=== PATIENT | female | born 1995 | race Caucasian/White ===

== ENCOUNTER 2020-05-10 08:00 | Outpatient (CLI) | payer MEDICAID ==
[2020-05-11 11:06] LABS: MUDS CUTOFF CONCENTRATIONS CUTOFF CONC BELOW:
[2020-05-11 11:18] LABS: BILIRUBIN,URINE NEGATIVE (NEGATIVE); GLUCOSE, URINE (UA) NEGATIVE (NEGATIVE); KETONES,URINE (UA) NEGATIVE (NEGATIVE); LEUKOCYTE ESTERASE, URINE NEGATIVE (NEGATIVE); NITRITE,URINE NEGATIVE (NEGATIVE); OCCULT BLOOD,URINE NEGATIVE (NEGATIVE); PH,URINE 6.5 PH (5.0-7.5); PROTEIN,URINE NEGATIVE (NEGATIVE); UROBILINOGEN,URINE 0.2 (NORMAL) E.U./dL (NORMAL)
[2020-05-11 11:26] LABS: AMPHETAMINE SCREEN,URINE NEGATIVE (NEGATIVE); BARBITURATE SCREEN,UR NEGATIVE (NEGATIVE); BENZODIAZEPINES SCREEN, URINE NEGATIVE (NEGATIVE); CLARITY,URINE CLEAR (CLEAR); COCAINE SCREEN URINE NEGATIVE (NEGATIVE); METHADONE SCREEN, URINE NEGATIVE (NEGATIVE); METHAMPHETAMINES SCREEN, URINE NEGATIVE (NEGATIVE); OPIATE SCREEN, URINE NEGATIVE (NEGATIVE); OXYCODONE SCREEN, URINE NEGATIVE (NEGATIVE); PROPOXYPHENE SCREEN, URINE NEGATIVE (NEGATIVE); THC CANNABINOID SCREEN, URINE NEGATIVE (NEGATIVE); TRICYCLIC ANTIDEPRESSANT,URINE NEGATIVE (NEGATIVE)
[2020-05-11 11:30] LABS: BACTERIA,URINE Few /HPF (None Seen); RBC,URINE 0-5 /HPF (0-5); SQUAMOUS EPITHELIAL CELL,UR FEW Squamous (<= Few); WBC,URINE 0-3 /HPF (0-5)
== END 2020-05-10 23:59 | disposition home or self-care (01) ==
LOC: LAB.R 08:00
PROVIDERS: ATTEND Obstetrics & Gynecology
DX: Z32.01 Encounter for pregnancy test, result positive (principal)
CPT/HCPCS: 80306; 81001; 87086

== ENCOUNTER 2020-05-11 16:35 | Outpatient (CLI) | payer MEDICAID ==
--- NOTE | 2020-05-12 07:33 | Ultrasound Report ---
PROCEDURE: OB First Trimester w/TV INDICATIONS: PREG TEST POSITIVE OUTSIDE/PRIOR DATING DATA: Last menstrual period (LMP): 03/01 2020. LMP-based estimated date of delivery (MICHAEL): 12/06/2020. First dating scan (date and location): 05/11/2020. Estimated date of delivery (MICHAEL) from first dating scan: 12/28/2020. TECHNIQUE: Real-time scanning was performed of the fetus and maternal pelvic organs, with image documentation. Endovaginal scanning was also performed to better visualize the fetus and maternal ovaries. COMPARISON: None FINDINGS: Embryo: Single living intrauterine gestation identified. Yolk sac and pole identified. [place]-r ump length measures 0.93 cm corresponding to ultrasound estimated gestational age of 7 weeks 0 days. heart rate measured at 135 bpm. Small 1.5-0 0.9 x 0.9 cm periimplantational bleed noted Measurement variability in dating: +/- 4 weeks by LMP, +/- 7 days by mean sac diameter (use before 6 weeks gestation if crown-rump length not able to be measured), +/- 5 days by crown-rump length (6-12 weeks gestation). Maternal organs: Ovaries are suboptimally visualized. Ovaries are grossly sonographically normal. IMPRESSION: Single living intrauterine gestation with ultrasound estimated gestational age of 7 weeks 0 days jose esponding to ultrasound MICHAEL of 12/28/2020. Reviewed by: Natty Rubio MD, PhD on 05/12/2020 7:32 AM PDT Approved by: Natty Rubio MD, PhD on 05/12/2020 7:32 AM PDT Station ID: [id number]
== END 2020-05-11 16:36 | disposition home or self-care (01) ==
LOC: DI 16:35
PROVIDERS: ATTEND Obstetrics & Gynecology
DX: Z32.01 Encounter for pregnancy test, result positive (principal)

== ENCOUNTER 2020-05-16 13:23 | Outpatient (CLI) | payer MEDICAID ==
[2020-05-16 14:06] LABS: BASOPHILS % (AUTO) 0.1 %; EOSINOPHILS % (AUTO) 0.1 %; HCT - HEMATOCRIT 40.4 % (37.0-47.0); HGB - HEMOGLOBIN 12.9 g/dL (12.0-16.0); LYMPHOCYTES # (AUTO) 2.4 10^3/uL (1.5-3.5); MEAN CORPUSCULAR HEMOGLOBIN 25.5 pg (27.0-31.0); MEAN CORPUSCULAR HGB CONC 31.9 g/dL (32.0-36.0); MEAN PLATELET VOLUME 9.1 fL (7.9-10.8); MONOCYTES # (AUTO) 0.6 10^3/uL (0.0-1.0); NEUTROPHILS # (AUTO) 6.8 10^3/uL (1.5-6.6); NEUTROPHILS % (AUTO) 69.1 %; PLT - PLATELET COUNT 257 10^3/uL (130-450); RED BLOOD COUNT 5.05 10^6/uL (4.20-5.40); RED CELL DISTRIBUTION WIDTH 14.6 % (12.0-15.0); WHITE BLOOD COUNT 9.8 x10^3/uL (4.8-10.8)
[2020-05-16 14:37] LABS: THYROID STIMULATING HORMONE 2.05 uIU/mL (0.34-5.60)
[2020-05-16 19:43] LABS: ESTIMATED AVERAGE GLUCOSE 91 mg/dL (70-100); HEMOGLOBIN A1c% 4.8 % (4.27-6.07)
[2020-05-18 13:01] LABS: HEPATITIS B SURFACE ANTIGEN NON-REACTIVE (NON-REACTIVE)
[2020-05-18 13:16] LABS: HEPATITIS C ANTIBODY NON-REACTIVE (NON-REACTIVE)
[2020-05-18 16:56] LABS: HIV AG/AB 4TH GEN NON-REACTIVE (NON-REACTIVE)
== END 2020-05-16 13:24 | disposition home or self-care (01) ==
LOC: LAB 13:23
PROVIDERS: ATTEND Obstetrics & Gynecology
DX: Z32.01 Encounter for pregnancy test, result positive (principal)
CPT/HCPCS: 36415; 83036; 84443; 85025; 86592; 86762; 86787; 86803; 86850; 86900; 86901; 87340; 87389

== ENCOUNTER 2021-02-18 22:54 | Outpatient (CLI) | payer MEDICAID ==
[2021-02-18] MEDS ORDERED: ACETAMINOPHEN 500 MG TABLET PO ONE (23:00)
[2021-02-18] MEDS ORDERED: LACTATED RINGERS 1,000 ML IV ONE (23:34)
[2021-02-18] MEDS ORDERED: ACETAMINOPHEN 325 MG TABLET PO ONE (23:45)
[2021-02-19 00:11] LABS: BASOPHILS % (AUTO) 0.3 %; EOSINOPHILS % (AUTO) 0.5 %; HCT - HEMATOCRIT 34.6 % (37.0-47.0); HGB - HEMOGLOBIN 11.1 g/dL (12.0-16.0); LYMPHOCYTES # (AUTO) 0.8 10^3/uL (1.5-3.5); LYMPHOCYTES % (AUTO) 13.9 %; MEAN CORPUSCULAR HEMOGLOBIN 24.7 pg (27.0-31.0); MEAN CORPUSCULAR HGB CONC 32.1 g/dL (32.0-36.0); MEAN CORPUSCULAR VOLUME 76.9 fL (81.0-99.0); MEAN PLATELET VOLUME 10.2 fL (7.9-10.8); MONOCYTES # (AUTO) 0.8 10^3/uL (0.0-1.0); MONOCYTES % (AUTO) 13.4 %; NEUTROPHILS # (AUTO) 4.2 10^3/uL (1.5-6.6); NEUTROPHILS % (AUTO) 70.2 %; NRBC ABSOLUTE COUNT (AUTO) 0.02 x10^3/uL; NUCLEATED RED BLOOD CELLS AUTO 0.3 /100WBC; PLT - PLATELET COUNT 259 10^3/uL (130-450); RED CELL DISTRIBUTION WIDTH 16.2 % (12.0-15.0)
[2021-02-19 00:20] LABS: ALBUMIN 2.5 g/dL (3.2-5.5); ALBUMIN/GLOBULIN RATIO 0.6 (1.0-2.2); BILIRUBIN,TOTAL 0.5 mg/dL (0.2-1.0); CALCIUM 8.7 mg/dL (8.5-10.3); CREATININE 0.8 mg/dL (0.4-1.0); POTASSIUM 3.9 mmol/L (3.5-5.0); TOTAL PROTEIN 6.4 g/dL (6.7-8.2)
--- NOTE | 2021-02-19 00:57 | PROVIDER PROGRESS NOTE ---
- HPI Chief Complaint: Headache Current : Vital Signs Temperature 98.8 F 02/18/21 23:22 Heart Rate 120 H 02/18/21 23:22 Respiratory Rate 24 02/18/21 23:22 Blood Pressure 142/79 H 02/18/21 23:22 Temperature 98.8 F 02/18/21 23:22 Heart Rate 123 H 02/19/21 00:15 Respiratory Rate 22 02/19/21 00:15 Blood Pressure 137/85 H 02/19/21 00:15 O2 Saturation 99 02/19/21 00:15 - Procedures OB Procedure Performed: NST NST Procedure: NST performed for labor, headache, gestational hypertension 150s, moderate variability, no decelerations, positive accelerations contractions initially 2-4 minutes, then decreased, not appreciated by patient NST reactive - Plan Plan: 25yo at 32.6w by 7w US presenting with cramping, back pain radiating down her legs, and headache. She reports abdominal pain and cramping lower pelvis. Back pain shooting down her legs. Denies vaginal bleeding or leaking fluid. Good movement. She is also concerned of COVID exposure. She lives with her boyfriend and his brother lives in same home. Brother tested positive for COVID yesterday. Reports symptoms of muscle aches and cough. Not coughing during this encounter. records from [facility] reviewed as well as triage visit at 01/28. complicated by gestational hypertension, BMI 62, anxiety/depression. NDKA Meds: denies Med:anxiety/depression Surg: denies Social: denies KIKO Fam: bipolar BP 124-142 99% R22 T98.8 HR 120 GEN: NAD CV: Tachycardic Resp: Breathing unlabored Abd: soft, nt, no rebound or guarding SVE: closed/long/-3 Ext: nt, minimal edema NST reactive Labs reviewed COVID-19 POS 25yo at 32.6w by 7w US, mild COVID-19 - 1L LR bolus and acetaminophen given in triage, with improvement in headache and feeling better - Likely with GHTN, labs benign - contractions, no cervical change and cramping decreased - NST reactive - COVID POS. 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 As she has mild symptoms at this time, no indication for inpatient admission. Offered to place her on list for monoclonal antibodies, patient declined. Recommended purchasing pulse oximeter to monitor oxygen saturations. - labor, preeclampsia, COVID-19 precautions reviewed with patient. She has an appointment this week, advised her to notify OB office of COVID status. RTC if any symptoms worsen. She may return here as needed, and she understands she may be transferred to higher level of care as indicated.
[2021-02-19 01:51] VITALS: BP 123/88
== END 2021-02-19 01:50 | disposition home or self-care (01) ==
LOC: WFO 22:54 → FBP 22:54 → WFO 02-19 01:50
PROVIDERS: ATTEND Obstetrics & Gynecology
DX: O98.513 Other viral diseases complicating pregnancy, third trimester (principal); U07.1 COVID-19; R51.9 Headache, unspecified; M79.10 Myalgia, unspecified site; R10.2 Pelvic and perineal pain; O13.3 Gestational [pregnancy-induced] hypertension without significant proteinuria, third trimester; Z3A.32 32 weeks gestation of pregnancy
CPT/HCPCS: 36415; 59025; 80053; 85025; 87635; 96360; 99215; A9270; J7120; 82570; 84156

== ENCOUNTER 2022-12-16 15:07 | Emergency (ER) | payer MEDICAID ==
[2022-12-16 15:31] LABS: BASOPHILS % (AUTO) 0.3 %; EOSINOPHILS # (AUTO) 0.2 10^3/uL (0.0-0.7); EOSINOPHILS % (AUTO) 1.7 %; HCT - HEMATOCRIT 44.8 % (37.0-47.0); HGB - HEMOGLOBIN 14.4 g/dL (12.0-16.0); LYMPHOCYTES # (AUTO) 2.8 10^3/uL (1.5-3.5); LYMPHOCYTES % (AUTO) 24.2 %; MEAN CORPUSCULAR HEMOGLOBIN 25.9 pg (27.0-31.0); MEAN CORPUSCULAR HGB CONC 32.1 g/dL (32.0-36.0); MEAN CORPUSCULAR VOLUME 80.6 fL (81.0-99.0); MEAN PLATELET VOLUME 9.9 fL (7.9-10.8); MONOCYTES # (AUTO) 0.7 10^3/uL (0.0-1.0); MONOCYTES % (AUTO) 6.2 %; NEUTROPHILS # (AUTO) 7.8 10^3/uL (1.5-6.6); NEUTROPHILS % (AUTO) 67.3 %; PLT - PLATELET COUNT 300 10^3/uL (130-450); RED BLOOD COUNT 5.56 10^6/uL (4.20-5.40); RED CELL DISTRIBUTION WIDTH 14.3 % (12.0-15.0); WHITE BLOOD COUNT 11.6 x10^3/uL (4.8-10.8)
[2022-12-16 15:48] LABS: ALBUMIN 4.1 g/dL (3.2-5.5); ALBUMIN/GLOBULIN RATIO 1.6 (1.0-2.2); ALKALINE PHOSPHATASE 204 IU/L (42-121); ALT ALANINE AMINOTRANSFERASE 117 IU/L (10-60); AST ASPARTATE AMINOTRANSFERASE 175 IU/L (10-42); BILIRUBIN,TOTAL 0.7 mg/dL (0.2-1.0); BUN - BLOOD UREA NITROGEN 14 mg/dL (6-20); CALCIUM 9.2 mg/dL (8.5-10.3); CARBON DIOXIDE - CO2 24 mmol/L (21-32); CHLORIDE 107 mmol/L (101-111); CREATININE 0.7 mg/dL (0.6-1.3); GFR - MDRD 100 (>89); GLUCOSE 123 mg/dL (74-104); SODIUM 138 mmol/L (135-145); TOTAL PROTEIN 6.7 g/dL (6.4-8.9)
[2022-12-16 15:50] LABS: LIPASE > 6000 U/L (11-82)
[2022-12-16] MEDS ORDERED: SODIUM CHLORIDE 0.9% 1,000 ML IV STA (16:38)
[2022-12-16] MEDS ORDERED: HYDROmorphone 1 MG/ML CARPUJECT IVP STA (16:38)
[2022-12-16] MEDS ORDERED: ONDANSETRON 4 MG/2 ML VIAL IVP STA (16:38)
--- NOTE | 2022-12-16 17:05 | ED Physician Documentation ---
History of Present Illness - Stated complaint Stated Complaint: UPPER ABD/BACK PX,N/V - Chief complaint Chief Complaint: Abd Pain - History obtained from History obtained from: Patient - History of Present Illness Pain level max: 7 Pain level now: 7 - Additonal information Additional information: 27-year-old female with epigastric abdominal pain that started 3 days ago. Gradually worsening. Has had nausea but no vomiting. No diarrhea. No constipation. Has not had similar symptoms previously. The pain is epigastric, radiates to the back. Nothing seems to make it better or worse. Denies any possibility of . No recent antibiotic use. She did have a gastric sleeve surgery about 6 months ago. Has not had any complications from that. Does not drink alcohol. No drug use. Review of Systems Constitutional: denies: Fever, Chills Cardiac: denies: Chest pain / pressure, Palpitations Respiratory: denies: Dyspnea, Cough Skin: denies: Rash Musculoskeletal: denies: Neck pain, Back pain Neurologic: denies: Headache PD PAST MEDICAL HISTORY - Past Medical History Past Medical History: No - Past Surgical History Past Surgical History: Yes General: Gastric surgery - Present Medications Home Medications: Ambulatory Orders Medication Instructions Recorded Confirmed Ondansetron Odt [Zofran] 4 mg TL Q6H PRN #10 tablet 12/16/22 Oxycodone HCl/Acetaminophen 1 - 2 each PO Q6H PRN #14 tablet 12/16/22 [Percocet 5-325 mg Tablet] MDD 6 tabs Venlafaxine HCl 75 mg PO BID 12/16/22 12/16/22 - Allergies Allergies/Adverse Reactions: Allergies Allergy/AdvReac Type Severity Reaction Status Date / Time No Known Drug Allergies Allergy Verified 02/18/21 23:52 - Social History Does the pt smoke?: No Smoking Status: Never smoker PD ED PE NORMAL - Vitals Vital signs reviewed: Yes - General General: Alert and oriented X 3, No acute distress - HEENT HEENT: PERRL, Moist mucous membranes - Neck Neck: Supple, no meningeal sign - Cardiac Cardiac: RRR, Strong equal pulses - Respiratory Respiratory: No respiratory distress, Clear bilaterally - Abdomen Abdomen: Soft, Non distended, Other (Tender to palpation epigastric without peritoneal signs. Otherwise benign abdominal exam.) - Back Back: No CVA TTP, No spinal TTP - Derm Derm: Warm and dry - Extremities Extremities: No edema, No calf tenderness / cord - Neuro Neuro: Alert and oriented X 3 - Psych Psych: Normal mood, Normal affect Results - Vitals Vitals: Vital Signs - 24 hr 12/16/22 12/16/22 12/16/22 15:18 15:20 18:15 Temperature 36.6 C 36.6 C Heart Rate 69 69 71 Respiratory 16 16 20 Rate Blood Pressure 141/96 H 141/96 H 118/67 O2 Saturation 96 96 99 12/16/22 19:24 Temperature Heart Rate 53 L Respiratory 18 Rate Blood Pressure 127/72 O2 Saturation 97 Oxygen O2 Source Room air - Labs Labs: Laboratory Tests 12/16/22 12/16/22 12/16/22 15:28 15:28 15:28 WBC 11.6 H RBC 5.56 H Hgb 14.4 Hct 44.8 MCV 80.6 L MCH 25.9 L MCHC 32.1 RDW 14.3 Plt Count 300 MPV 9.9 Neut # (Auto) 7.8 H Lymph # (Auto) 2.8 [place] # (Auto) 0.7 Eos # (Auto) 0.2 Baso # (Auto) 0.0 Absolute Nucleated RBC 0.00 Nucleated RBC % 0.0 Sodium 138 Potassium 4.0 Chloride 107 Carbon Dioxide 24 Anion Gap 7.0 BUN 14 Creatinine 0.7 Estimated GFR (MDRD) 100 Glucose 123 H Calcium 9.2 Total Bilirubin 0.7 AST 175 H ALT 117 H Alkaline Phosphatase 204 H Total Protein 6.7 Albumin 4.1 Globulin 2.6 Albumin/Globulin Ratio 1.6 Triglycerides 146 Lipase > 6000 H Serum HCG, Qual NEGATIVE Urine Color Urine Clarity Urine pH Ur Specific [place] Urine Protein Urine Glucose (UA) Urine Ketones Urine Occult Blood Urine Nitrite Urine Bilirubin Urine Urobilinogen Ur Leukocyte Esterase Ur Microscopic Review Urine Culture Comments 12/16/22 16:05 WBC RBC Hgb Hct MCV MCH MCHC RDW Plt Count MPV Neut # (Auto) Lymph # (Auto) [place] # (Auto) Eos # (Auto) Baso # (Auto) Absolute Nucleated RBC Nucleated RBC % Sodium Potassium Chloride Carbon Dioxide Anion Gap BUN Creatinine Estimated GFR (MDRD) Glucose Calcium Total Bilirubin AST ALT Alkaline Phosphatase Total Protein Albumin Globulin Albumin/Globulin Ratio Triglycerides Lipase Serum HCG, Qual Urine Color YELLOW Urine Clarity CLEAR Urine pH 5.5 Ur Specific [place] 1.020 Urine Protein NEGATIVE Urine Glucose (UA) NEGATIVE Urine Ketones NEGATIVE Urine Occult Blood NEGATIVE Urine Nitrite NEGATIVE Urine Bilirubin NEGATIVE Urine Urobilinogen 1 (NORMAL) Ur Leukocyte Esterase NEGATIVE Ur Microscopic Review NOT INDICATED Urine Culture Comments NOT INDICATED - Rads (name of study) CT abd/pelvis Relevant Findings:: Final report received, See rad report RUQ US Relevant Findings:: Final report received, See rad report PD Medical Decision Making - ED course Complexity details: reviewed results, re-evaluated patient, considered differential, d/w patient ED course: 27-year-old female with pancreatitis of unclear cause. No hypertriglyceridemia. She does have some sludge in the gallbladder but her ducts are normal. Her pain is well controlled in the emergency department she is tolerating p.o. without difficulty. She is not a heavy alcohol user. The patient is very well- appearing, nontoxic. Afebrile. We will place her on pain medication for home. Place her on a liquid diet for the next few days and have her follow-up with her doctor for further care. She will return for worsening pain, fevers, vomiting or other new or worrisome symptoms. No other acute findings on CT scan or ultrasound. Patient counseled regarding signs and symptoms for which I believe and urgent re-evaluation would be necessary. Patient with good understanding of and agreement to plan and is comfortable going home at this time This document was made in part using voice recognition software. While efforts are made to proofread this document, sound alike and grammatical errors may occur. Departure - Departure Disposition: 01 Home, Self Care Clinical Impression: Pancreatitis Qualifiers: Chronicity: acute Pancreatitis type: unspecified pancreatitis type Acute pancreatitis complication: unspecified Qualified Code(s): K85.90 - Acute pancreatitis without necrosis or infection, unspecified Condition: Good Instructions: ED Pancreatitis Follow-Up: Isael Rodriguez ARNP [Primary Care Provider] - Within 1 week Prescriptions: Oxycodone HCl/Acetaminophen [Percocet 5-325 mg Tablet] 1 - 2 each PO Q6H PRN #14 tablet MDD 6 tabs PRN Reason: pain Ondansetron Odt [Zofran] 4 mg TL Q6H PRN #10 tablet PRN Reason: Nausea / Vomiting Comments: You have pancreatitis today. The cause of the pancreatitis is unclear, it may be related to your gallbladder as there is sludge in your gallbladder. I have prescribed pain medication for home. This was sent to the [facility] pharmacy. Please avoid any alcohol. Please return if you worsen. Follow-up with your doctor for further care. Your CT scan also shows a malpositioned IUD that appears to have grown into the endometrium. You have stated that this is planning on being surgically removed. I am prescribing a short course of narcotic pain medication for you. These are potentially dangerous and addictive medications that should be used carefully. These medications may constipate you. Take an aqvj-uyr-tpotjgu stool softener (docusate) twice daily with plenty of water while taking these medications. If you go 24 hours without a bowel movement, take [id number] miralax, per package instructions. Do not drink or drive while taking these medications. If you received narcotic or sedating medications while in the emergency department, do not drive for 24 hours. Store this medication in a safe, secure place and out of reach of children. It is a violation of federal law to give or sell this medication to another person or to use in a manner other than prescribed. The ED will not refill narcotic prescriptions, including prescriptions lost or stolen. To dispose of unwanted medications: 1. [facility] [address] [facility] [address] [facility] in [place] has a medication drop box. They accept prescription medications (in pill form) Sunday through Sunday 9:00 a.m. to 5:00 p.m. 2. The [facility] [employer] accepts prescription medications (in pill form only) for disposal year round. Call for more information. 3. Contact the [facility] for the next [facility] sponsored prescription drug collection event. , [phone], or [phone]; Forms: PCP List Discharge Date/Time: 12/16/22 20:10
[2022-12-16 17:15] LABS: BILIRUBIN,URINE NEGATIVE (NEGATIVE); GLUCOSE, URINE (UA) NEGATIVE (NEGATIVE); KETONES,URINE (UA) NEGATIVE (NEGATIVE); LEUKOCYTE ESTERASE, URINE NEGATIVE (NEGATIVE); NITRITE,URINE NEGATIVE (NEGATIVE); OCCULT BLOOD,URINE NEGATIVE (NEGATIVE); PH,URINE 5.5 PH (5.0-7.5); PROTEIN,URINE NEGATIVE (NEGATIVE); UROBILINOGEN,URINE 1 (NORMAL) E.U./dL (NORMAL)
[2022-12-16 17:16] LABS: CLARITY,URINE CLEAR (CLEAR)
[2022-12-16 17:20] LABS: TRIGLYCERIDES 146 mg/dL (48-352)
[2022-12-16 17:28] LABS: HCG,QUALITATIVE BLOOD NEGATIVE
[2022-12-16] MEDS ORDERED: iohexoL-300 100 ML VIAL IVP ONE (18:57)
[2022-12-16 19:26] VITALS: BP 127/72; O2SAT 97
--- NOTE | 2022-12-16 19:32 | Ultrasound Report ---
PROCEDURE: Abdomen Limited INDICATIONS: abd pain, pancreatitis, LFT elevation TECHNIQUE: Real-time focused scanning was performed of the abdomen, with image documentation. COMPARISONS: Correlation is made with the accompanying CT study. FINDINGS: Liver: The liver demonstrates enlarged size. The liver demonstrates moderately increased echogenici ty, which limits ultrasound sensitivity for detection of masses. The main portal vein demonstrates no rmal size and hepatopedal flow. Gallbladder: There is sludge can be seen within the gallbladder. An apparent gallbladder wall fold is seen. The gallbladder wall does not appear significantly thickened. There is no specific pericholecy stic fluid. The sonographic Garcia's sign is negative. Biliary ducts: Intrahepatic bile ducts are non-dilated. Extrahepatic bile duct caliber measures 7 m m. Normal is 6-7 mm or less in diameter, or 10 mm or less post-cholecystectomy. Pancreas: Visualized portions of the pancreas are sonographically normal. Right kidney: The right kidney is not well seen, secondary to overlying bowel gas. Aorta: Visualized aorta is normal in caliber at less than 3 cm. IVC: Intrahepatic inferior vena cava is patent. Miscellaneous: No free abdominal fluid. IMPRESSION: No significant pancreas abnormality is seen by ultrasound. An enlarged, fatty liver is seen. Layering sludge is seen within the gallbladder, without additional significant gallbladder abnormalit y by ultrasound. Note: Concordant preliminary findings given by the first assistant manager upon the completion of the examination to Dr. Badillo. Reviewed by: Louis Stern MD on 12/16/2022 6:31 PM [facility] Approved by: Louis Stern MD on 12/16/2022 6:31 PM [facility] Station ID: [id number]
--- NOTE | 2022-12-16 19:35 | CT Report ---
PROCEDURE: ABDOMEN/PELVIS W INDICATIONS: pancreatitis, abd pain CONTRAST: 100ml omni 300 TECHNIQUE: After the administration of IV contrast, 5 mm thick sections acquired from the diaphragms to the symp hysis. 5 mm thick coronal and sagittal reformats were acquired. For radiation dose reduction, the f ollowing was used: automated exposure control, adjustment of mA and/or kV according to patient size. COMPARISON: Correlation is made with the accompanying ultrasound. FINDINGS: Image quality: This study is limited by body habitus. Lung bases and heart: Unremarkable. Liver: No solid mass. Gallbladder and biliary tree: Within normal limits. Spleen: No splenomegaly. Pancreas: There is a mild degree of inflammatory change seen adjacent to the pancreas. The pancreatic duct is not dilated. The pancreas enhances normally. No peripancreatic fluid collections are seen. Adrenals: No adrenal nodule. Kidneys and ureters: No hydronephrosis. No renal cystic lesion which requires follow up. No solid mas s. Bowel and peritoneum: Bariatric surgery can be seen. No bowel distension. No pathologic free fluid. A normal appendix is seen. Lymph nodes: No central or retroperitoneal adenopathy. Vessels: No infrarenal aortic aneurysm. PELVIS Reproductive organs: The uterus demonstrates an unremarkable appearance for age. Within the uterus, t he IUD is malpositioned, with the crossbars oriented vertically and embedded within the myometrium. N o adnexal masses are seen. Bladder: No abnormal wall thickening, accounting for underdistension. Pelvic lymph nodes: No pelvic adenopathy by size criteria. Bones: No aggressive osseous abnormality. Other: There is a moderately sized fat-containing periumbilical hernia. IMPRESSION: Mild inflammatory change can be seen adjacent to the pancreas, which is consistent with the clinical history of pancreatitis. No perinephric fluid collections are seen. No abnormally enhancing areas are seen. No pancreatic ductal dilatation. Malpositioned IUD. Please consider gynecology follow-up. Additional findings: Bariatric surgery Moderate fat-containing periumbilical hernia Normal appendix Reviewed by: Louis Stern MD on 12/16/2022 6:34 PM [place] Approved by: Louis Stern MD on 12/16/2022 6:34 PM [facility] Station ID: [id number]
== END 2022-12-16 20:10 | disposition home or self-care (01) ==
LOC: ED 15:07
DX: K85.90 Acute pancreatitis without necrosis or infection, unspecified (principal)
CPT/HCPCS: 36415; 74177; 76705; 80053; 81003; 83690; 84478; 84703; 85025; 96374; 99283; 99284; J1170; Q9967; 81001; 81025; 87086

== ENCOUNTER 2022-12-21 16:46 | Outpatient (CLI) | payer MEDICAID ==
[2022-12-21 16:59] LABS: BASOPHILS # (AUTO) 0.1 10^3/uL (0.0-0.1); BASOPHILS % (AUTO) 0.5 %; EOSINOPHILS # (AUTO) 0.3 10^3/uL (0.0-0.7); EOSINOPHILS % (AUTO) 2.4 %; HCT - HEMATOCRIT 45.9 % (37.0-47.0); HGB - HEMOGLOBIN 14.3 g/dL (12.0-16.0); LYMPHOCYTES # (AUTO) 3.1 10^3/uL (1.5-3.5); MEAN CORPUSCULAR HEMOGLOBIN 25.6 pg (27.0-31.0); MEAN CORPUSCULAR HGB CONC 31.2 g/dL (32.0-36.0); MEAN CORPUSCULAR VOLUME 82.3 fL (81.0-99.0); MEAN PLATELET VOLUME 9.9 fL (7.9-10.8); MONOCYTES # (AUTO) 0.6 10^3/uL (0.0-1.0); MONOCYTES % (AUTO) 5.4 %; NEUTROPHILS # (AUTO) 6.3 10^3/uL (1.5-6.6); NEUTROPHILS % (AUTO) 61.4 %; PLT - PLATELET COUNT 281 10^3/uL (130-450); RED BLOOD COUNT 5.58 10^6/uL (4.20-5.40); RED CELL DISTRIBUTION WIDTH 14.4 % (12.0-15.0); WHITE BLOOD COUNT 10.2 x10^3/uL (4.8-10.8)
[2022-12-21 17:14] LABS: CALCIUM 9.2 mg/dL (8.5-10.3); CREATININE 0.7 mg/dL (0.6-1.3)
== END 2022-12-21 16:47 | disposition home or self-care (01) ==
LOC: LAB 16:46
PROVIDERS: ATTEND Obstetrics & Gynecology
DX: Z01.812 Encounter for preprocedural laboratory examination (principal); T83.32XA Displacement of intrauterine contraceptive device, initial encounter
CPT/HCPCS: 36415; 80048; 85025

== ENCOUNTER 2022-12-26 07:58 | Day surgery (SDC) | payer MEDICAID ==
[2022-12-26] MEDS ORDERED: LACTATED RINGERS 1,000 ML IV ONE (08:21)
[2022-12-26] MEDS ORDERED: fentaNYL 100 MCG/2 ML VIAL ONE (08:26)
[2022-12-26] MEDS ORDERED: MIDAZOLAM 2 MG/2 ML VIAL ONE (08:26)
[2022-12-26] MEDS ORDERED: PROPOFOL 200 MG/20 ML VIAL IVP ONE ×2 (08:27→08:46)
[2022-12-26] MEDS ORDERED: LIDOCAINE-PF 2% 10 ML AMP SUBQ ONE (08:27)
[2022-12-26 08:29] VITALS: O2SAT 100
[2022-12-26] MEDS ORDERED: fentaNYL 100 MCG/2 ML VIAL IVP PRN (08:32)
[2022-12-26] MEDS ORDERED: ATROPINE ABBOJECT 1 MG/10 ML SYRINGE IVP PRN (08:32)
[2022-12-26] MEDS ORDERED: ePHEDrine 50 MG/ML VIAL IVP PRN (08:32)
[2022-12-26] MEDS ORDERED: ONDANSETRON 4 MG/2 ML VIAL IVP PRN (08:32)
[2022-12-26] MEDS ORDERED: MORPHINE 2 MG/ML CARPUJECT IVP PRN (08:32)
[2022-12-26] MEDS ORDERED: METOCLOPRAMIDE 10 MG/2 ML VIAL IVP PRN (08:32)
[2022-12-26] MEDS ORDERED: HYDROmorphone 0.5 MG/0.5 ML SYRINGE IVP PRN (08:32)
[2022-12-26] MEDS ORDERED: NALOXONE 0.4 MG/ML VIAL IVP PRN (08:32)
--- NOTE | 2022-12-26 08:32 | ANESTHESIA ---
Pre-Anesthesia VS, & Labs - Diagnosis displaced IUD - Procedure hysteroscopy, IUD removal Vital Signs: Temp Pulse Resp BP Pulse Ox O2 Flow Rate 36.2 C L 65 20 128/76 100 12/26/22 08:21 12/26/22 08:21 12/26/22 08:21 12/26/22 08:21 12/26/22 08:21 Height: 5 ft 6 in Weight (kg): 131.6 kg Body Mass Index: 46.8 BMI Classification: Morbidly Obese - NPO >8 hours - Is Patient ?: No - Lab Results Lab results reviewed: Yes Home Medications and Allergies Venlafaxine HCl 75 - 150 mg PO BID 12/16/22 Allergies/Adverse Reactions: Allergies Allergy/AdvReac Type Severity Reaction Status Date / Time bee venom protein (honey bee) AdvReac Rash Verified 12/26/22 08:27 Anes History & Medical History - Anesthetic History Anesthesia Complications: reports: No previous complications Family history of Anesthesia Complications: Denies Family history of Malignant Hyperthermia: Denies - Medical History Cardiovascular: reports: None Pulmonary: reports: None Gastrointestinal: reports: None, GERD (remote hx prior to gastric sleeve) Urinary: reports: None Musculoskeletal: reports: None Endocrine/Autoimmune: reports: None Skin: reports: None Smoking Status: Never smoker Psychosocial: reports: No issues indicated History of Cancer?: No - Surgical History General: reports: Gastric surgery Gynecologic: reports: section Exam General: Alert, Oriented x3, Cooperative Dental: WNL Mouth Openin Fingerbreadth Neck Mobility: Normal Mallampati classification: II Thyromental Distance: 4-6 cm Respiratory: Lungs clear, Normal breath sounds, No respiratory distress Cardiovascular: Regular rate Neurological: Normal speech Mental/Cognitive Status: Alert/Oriented X3, Normal for patient Cognitive Status: Within normal limits Plan Anesthesia Type: MAC, Total IV Consent for Procedure(s) Verified and Reviewed: Yes Code Status: Attempt Resuscitation ASA classification: 2-Mild systemic disease Is this case an emergency?: No
[2022-12-26 08:51] LABS: HCG UR QUAL NEGATIVE
[2022-12-26] MEDS ORDERED: LACTATED RINGERS 1,000 ML IV SCH (09:00)
[2022-12-26] MEDS ORDERED: DEXAMETHASONE 4 MG/ML VIAL ONE (09:18)
[2022-12-26] MEDS ORDERED: ONDANSETRON 4 MG/2 ML VIAL ONE (09:18)
[2022-12-26] MEDS ORDERED: LACTATED RINGERS 500 ML IV ONE ×2 (09:27)
[2022-12-26] MEDS ORDERED: HYDROcod/ACETAM 5/325 MG TABLET PO PRN (09:37)
--- NOTE | 2022-12-26 09:37 | OPERATIVE REPORT ---
Operative Report - General Procedure Date: 12/26/22 - Other Other Information/Narrative: OPERATIVE NOTE Pre-operative diagnosis: 1.Retained IUD 2. 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 Findings: EUA: small uterus, no adnexal masses, normal cervix Speculum: normal vagina, normal cervix Hysteroscope: normal endocervical canal strings seen within canal Specimen: none Complications: None apparent EBL: minimal Hysteroscopic fluid in: 500 Hysteroscopic fluid out: 500 UOP: none, pt voided prior to case Dispo: Pt to PACU in stable condition Procedure in detail: After risks benefits and alternatives, as well as indication for procedure and anticipated post-operative recovery course, were discussed with the patient informed consent was obtained and patient was taken to the operating theater where sedation administered without complication. Pt placed in dorsal lithotomy position, SCDs in place and running, and bimanual exam revealed the aforementioned findings. Daley speculum placed in posterior vagina, and anterior lip of cervix grasped with ring forces. Cervix dilated to accomodate 5.5mm hysteroscope. hysteroscope then entered without difficulty. aforementioned findings noted. hysteroscope removed. 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 IUD in specimen cup in order to show patient removed in total after she recovers from anesthesia All counts correct. Pt awaked from anesthesia. Pt to PACU in stable condition.
[2022-12-26 10:12] VITALS: BP 131/78
--- NOTE | 2022-12-26 10:19 | ANESTHESIA POST OP EVALUATION ---
Anesthesia Post Eval - Post Anesthesia Eval Vitals: Last Vital Signs Temp 36.6 C 12/26/22 10:05 Pulse 59 L 12/26/22 10:05 Resp 16 12/26/22 10:05 BP 131/78 H 12/26/22 10:05 Pulse Ox 100 12/26/22 10:05 O2 Flow Rate CV Function Including HR & BP: Stable Pain Control: Satisfactory Nausea & Vomiting: Negative Mental Status: Baseline Respiratory Status: Airway Patent Hydration Status: Satisfactory Anesthesia Complications: None
== END 2022-12-26 07:59 | disposition home or self-care (01) ==
LOC: SDS 07:58
PROVIDERS: ATTEND Obstetrics & Gynecology
DX: T83.89XA Other specified complication of genitourinary prosthetic devices, implants and grafts, initial encounter (principal); E66.01 Morbid (severe) obesity due to excess calories; Z68.42 Body mass index [BMI] 45.0-49.9, adult
CPT/HCPCS: 58301; 58555; 81025; J7120

== ENCOUNTER 2023-01-08 08:46 | Emergency (ER) | payer MEDICAID ==
[2023-01-08] MEDS ORDERED: KETOROLAC 15 MG/ML VIAL IVP STA (09:08)
[2023-01-08] MEDS ORDERED: ONDANSETRON 4 MG/2 ML VIAL IVP STA (09:08)
[2023-01-08] MEDS ORDERED: SODIUM CHLORIDE 0.9% 1,000 ML IV STA (09:08)
--- NOTE | 2023-01-08 09:10 | ED Physician Documentation ---
PD HPI ABD PAIN - Stated complaint Stated Complaint: UPPER ABD PX - Chief complaint Chief Complaint: Abd Pain - History obtained from History obtained from: Patient - Additional information Additional information: 27-year-old woman had a first episode of pancreatitis last month. The cause was unclear. She was seen by my partner here and testing was done which demonstrated a lipase of greater than 6000, no elevation in triglycerides, a CT showing changes from her gastric sleeve which was done about 6 months ago in [place], a malpositioned IUD which has since been removed, and a umbilical hernia. She also had an ultrasound done which showed sludge in the gallbladder but no other abnormalities. She is maintained on Effexor and omeprazole. She developed epigastric pain radiating to the back last evening consistent with her prior episode of pancreatitis. It is better if she takes a deep breath. She is not short of breath. No fevers. There is mild nausea. No vomiting. PD PAST MEDICAL HISTORY - Past Medical History Past Medical History: Yes GI: None, GERD, Pancreatitis - Past Surgical History Past Surgical History: Yes General: Gastric surgery - Present Medications Home Medications: Ambulatory Orders Medication Instructions Recorded Confirmed Venlafaxine HCl 75 - 150 mg PO BID 12/16/22 01/08/23 - Allergies Allergies/Adverse Reactions: Allergies Allergy/AdvReac Type Severity Reaction Status Date / Time bee venom protein (honey bee) AdvReac Rash Verified 01/08/23 08:58 - Social History Does the pt smoke?: No Smoking Status: Never smoker Does the pt drink ETOH?: No Does the pt have substance abuse?: No - Immunizations Immunizations are current?: Yes - POLST Patient has POLST: No PD ED PE NORMAL - Vitals Vital signs reviewed: Yes - General General: Alert and oriented X 3, No acute distress - Cardiac Cardiac: RRR, No murmur - Respiratory Respiratory: No respiratory distress, Clear bilaterally - Abdomen Abdomen: Normal bowel sounds, Soft, Non tender - Neuro Neuro: Alert and oriented X 3, Normal speech Results - Vitals Vitals: Vital Signs - 24 hr 01/08/23 08:56 Temperature 36.7 C Heart Rate 56 L Respiratory 16 Rate Blood Pressure 144/85 H O2 Saturation 98 Oxygen O2 Source Room air - Labs Labs: Laboratory Tests 01/08/23 01/08/23 01/08/23 09:03 09:20 09:20 WBC 9.0 RBC 5.25 Hgb 13.8 Hct 43.9 MCV 83.6 MCH 26.3 L MCHC 31.4 L RDW 14.6 Plt Count 258 MPV 10.0 Neut # (Auto) 6.4 Lymph # (Auto) 1.9 Villalba # (Auto) 0.5 Eos # (Auto) 0.2 Baso # (Auto) 0.0 Absolute Nucleated RBC 0.00 Nucleated RBC % 0.0 Sodium 140 Potassium 3.7 Chloride 105 Carbon Dioxide 30 Anion Gap 5.0 L BUN 12 Creatinine 0.8 Estimated GFR (MDRD) 85 L Glucose 79 Calcium 9.3 Total Bilirubin 1.1 H AST 180 H ALT 163 H Alkaline Phosphatase 286 H Total Protein 6.6 Albumin 4.0 Globulin 2.6 Albumin/Globulin Ratio 1.5 Lipase > 6000 H Urine Color ORANGE Urine Clarity CLEAR Urine pH 5.0 Ur Specific [place] 1.025 Urine Protein 100 H Urine Glucose (UA) NEGATIVE Urine Ketones TRACE Urine Occult Blood LARGE H Urine Nitrite NEGATIVE Urine Bilirubin NEGATIVE Urine Urobilinogen 4 H Ur Leukocyte Esterase NEGATIVE Urine RBC TNTC H Urine WBC 4-5 Urine WBC Clumps PRESENT Ur Squamous Epith Cells FEW Squamous Urine Bacteria Rare Ur Microscopic Review INDICATED Urine Culture Comments NOT INDICATED Urine HCG, Qual NEGATIVE Ethyl Alcohol < 10.0 PD Medical Decision Making - ED course ED course: Urinalysis notable for blood, she is on her menses. CMP notable for modest transaminitis, CBC unremarkable. 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 Note made that both Effexor and omeprazole, her 2 medications have listed side effects of pancreatitis. She been on the Effexor for about 4 years and the omeprazole for a little over 6 months. That said, given the mild transaminitis and prior finding of sludge in the gallbladder I suspect it is more likely biliary pancreatitis. Departure - Departure Disposition: 01 Home, Self Care Clinical Impression: Pancreatitis Qualifiers: Chronicity: acute Pancreatitis type: idiopathic Acute pancreatitis complication: no infection or necrosis Qualified Code(s): K85.00 - Idiopathic acute pancreatitis without necrosis or infection Condition: Good Record reviewed to determine appropriate education?: Yes Instructions: ED Pancreatitis Follow-Up: [facility] [Provider Group] Comments: As discussed, I suspect the cause of your pancreatitis is the "sludge in your gallbladder" seen on prior imaging. Would recommend clear liquid diet for the next 24 hours and follow-up with one of our surgeons. The number is on this form. Return for new or worsening symptoms. You can take ibuprofen as needed for the pain. Forms: PCP List, Activity restrictions
[2023-01-08 09:16] VITALS: O2SAT 98
[2023-01-08 09:18] LABS: GLUCOSE, URINE (UA) NEGATIVE (NEGATIVE); KETONES,URINE (UA) TRACE mg/dL (NEGATIVE); LEUKOCYTE ESTERASE, URINE NEGATIVE (NEGATIVE); NITRITE,URINE NEGATIVE (NEGATIVE); OCCULT BLOOD,URINE LARGE (NEGATIVE); PROTEIN,URINE 100 mg/dL (NEGATIVE); UROBILINOGEN,URINE 4 E.U./dL (NORMAL)
[2023-01-08 09:25] LABS: BILIRUBIN,URINE NEGATIVE (NEGATIVE); CLARITY,URINE CLEAR (CLEAR); HCG UR QUAL NEGATIVE; ICTOTEST,URINE NEGATIVE
[2023-01-08 09:31] LABS: BACTERIA,URINE Rare /HPF (None Seen); RBC,URINE TNTC /HPF (0-5); SQUAMOUS EPITHELIAL CELL,UR FEW Squamous (<= Few); WBC CLUMPS,URINE PRESENT
[2023-01-08 09:34] LABS: BASOPHILS % (AUTO) 0.4 %; EOSINOPHILS # (AUTO) 0.2 10^3/uL (0.0-0.7); EOSINOPHILS % (AUTO) 1.8 %; HCT - HEMATOCRIT 43.9 % (37.0-47.0); HGB - HEMOGLOBIN 13.8 g/dL (12.0-16.0); LYMPHOCYTES # (AUTO) 1.9 10^3/uL (1.5-3.5); LYMPHOCYTES % (AUTO) 20.7 %; MEAN CORPUSCULAR HEMOGLOBIN 26.3 pg (27.0-31.0); MEAN CORPUSCULAR HGB CONC 31.4 g/dL (32.0-36.0); MEAN CORPUSCULAR VOLUME 83.6 fL (81.0-99.0); MONOCYTES # (AUTO) 0.5 10^3/uL (0.0-1.0); MONOCYTES % (AUTO) 5.6 %; NEUTROPHILS # (AUTO) 6.4 10^3/uL (1.5-6.6); NEUTROPHILS % (AUTO) 71.1 %; PLT - PLATELET COUNT 258 10^3/uL (130-450); RED BLOOD COUNT 5.25 10^6/uL (4.20-5.40); RED CELL DISTRIBUTION WIDTH 14.6 % (12.0-15.0)
[2023-01-08 09:43] LABS: ALBUMIN/GLOBULIN RATIO 1.5 (1.0-2.2); ALKALINE PHOSPHATASE 286 IU/L (42-121); ALT ALANINE AMINOTRANSFERASE 163 IU/L (10-60); AST ASPARTATE AMINOTRANSFERASE 180 IU/L (10-42); BILIRUBIN,TOTAL 1.1 mg/dL (0.2-1.0); BUN - BLOOD UREA NITROGEN 12 mg/dL (6-20); CALCIUM 9.3 mg/dL (8.5-10.3); CARBON DIOXIDE - CO2 30 mmol/L (21-32); CHLORIDE 105 mmol/L (101-111); CREATININE 0.8 mg/dL (0.6-1.3); ETOH - ETHANOL < 10.0 mg/dL; GFR - MDRD 85 (>89); GLUCOSE 79 mg/dL (74-104); POTASSIUM 3.7 mmol/L (3.5-4.5); SODIUM 140 mmol/L (135-145); TOTAL PROTEIN 6.6 g/dL (6.4-8.9)
[2023-01-08 09:58] LABS: LIPASE > 6000 U/L (11-82)
[2023-01-08 10:15] VITALS: BP 126/80
== END 2023-01-08 10:20 | disposition home or self-care (01) ==
LOC: ED 08:46
DX: K85.00 Idiopathic acute pancreatitis without necrosis or infection (principal); Z98.84 Bariatric surgery status
CPT/HCPCS: 36415; 80053; 80320; 81001; 81003; 81025; 83690; 85025; 87086; 96374; 96375; 99283

== ENCOUNTER 2023-01-23 12:32 | Emergency (ER) | payer MEDICAID ==
[2023-01-23 13:06] LABS: GLUCOSE, URINE (UA) NEGATIVE (NEGATIVE); OCCULT BLOOD,URINE NEGATIVE (NEGATIVE)
[2023-01-23 13:09] LABS: BILIRUBIN,URINE MODERATE (NEGATIVE); CLARITY,URINE HAZY (CLEAR); HCG UR QUAL NEGATIVE; ICTOTEST,URINE POSITIVE
[2023-01-23 13:17] LABS: BACTERIA,URINE Moderate /HPF (None Seen); RBC,URINE 0-5 /HPF (0-5); SQUAMOUS EPITHELIAL CELL,UR MANY Squamous (<= Few); WBC,URINE 0-3 /HPF (0-5)
[2023-01-23 13:45] LABS: ALBUMIN 3.8 g/dL (3.2-5.5); ALBUMIN/GLOBULIN RATIO 1.3 (1.0-2.2); ALKALINE PHOSPHATASE 189 IU/L (42-121); ALT ALANINE AMINOTRANSFERASE 90 IU/L (10-60); AST ASPARTATE AMINOTRANSFERASE 88 IU/L (10-42); BILIRUBIN,TOTAL 2.1 mg/dL (0.2-1.0); BUN - BLOOD UREA NITROGEN 14 mg/dL (6-20); CALCIUM 9.3 mg/dL (8.5-10.3); CARBON DIOXIDE - CO2 27 mmol/L (21-32); CHLORIDE 104 mmol/L (101-111); CREATININE 0.7 mg/dL (0.6-1.3); GFR - MDRD 100 (>89); GLUCOSE 132 mg/dL (74-104); SODIUM 138 mmol/L (135-145); TOTAL PROTEIN 6.7 g/dL (6.4-8.9)
[2023-01-23 13:47] LABS: BASOPHILS % (AUTO) 0.4 %; EOSINOPHILS # (AUTO) 0.1 10^3/uL (0.0-0.7); EOSINOPHILS % (AUTO) 1.3 %; HCT - HEMATOCRIT 42.9 % (37.0-47.0); HGB - HEMOGLOBIN 14.1 g/dL (12.0-16.0); LYMPHOCYTES # (AUTO) 1.6 10^3/uL (1.5-3.5); LYMPHOCYTES % (AUTO) 15.1 %; MEAN CORPUSCULAR HEMOGLOBIN 26.8 pg (27.0-31.0); MEAN CORPUSCULAR HGB CONC 32.9 g/dL (32.0-36.0); MEAN CORPUSCULAR VOLUME 81.4 fL (81.0-99.0); MEAN PLATELET VOLUME 9.7 fL (7.9-10.8); MONOCYTES # (AUTO) 0.7 10^3/uL (0.0-1.0); MONOCYTES % (AUTO) 6.2 %; NEUTROPHILS # (AUTO) 8.1 10^3/uL (1.5-6.6); NEUTROPHILS % (AUTO) 76.6 %; PLT - PLATELET COUNT 301 10^3/uL (130-450); RED BLOOD COUNT 5.27 10^6/uL (4.20-5.40); RED CELL DISTRIBUTION WIDTH 14.7 % (12.0-15.0); WHITE BLOOD COUNT 10.6 x10^3/uL (4.8-10.8)
[2023-01-23 13:52] LABS: LIPASE > 6000 U/L (11-82)
[2023-01-23] MEDS ORDERED: SODIUM CHLORIDE 0.9% 1,000 ML IV STA (14:07)
[2023-01-23] MEDS ORDERED: ONDANSETRON 4 MG/2 ML VIAL IVP STA (14:07)
[2023-01-23] MEDS ORDERED: HYDROmorphone 1 MG/ML CARPUJECT IVP STA (14:07)
--- NOTE | 2023-01-23 14:36 | ED Physician Documentation ---
History of Present Illness - Stated complaint Stated Complaint: ABD PX,VOMIT - Chief complaint Chief Complaint: Abd Pain - History obtained from History obtained from: Patient - History of Present Illness Timing: Today Pain level max: 0 Pain level now: 0 - Additonal information Additional information: Patient is a 27-year-old female with a history of biliary sludge potenitally causing recurrent pancreatitis. She developed epigastric abdominal pain today along with nausea and vomiting. Did not have any medications at home. No fevers. No chills. Has had a gastric bypass in [place]. She is scheduled for cholecystectomy on February [address] Porter. Does not drink alcohol. Nothing makes it better or worse. Review of Systems Constitutional: denies: Fever, Chills Respiratory: denies: Cough GI: reports: Abdominal Pain, Nausea, Vomiting. denies: Diarrhea, Hematemesis, Bloody / black stool : denies: Dysuria, Frequency, Hesitancy, Now EGA Skin: denies: Rash Musculoskeletal: denies: Neck pain, Back pain Neurologic: denies: Headache PD PAST MEDICAL HISTORY - Past Medical History Past Medical History: Yes Cardiovascular: None Respiratory: None Neuro: None GI: GERD, Pancreatitis TYPING CHECKER: None : None HEENT: None Psych: Depression, Anxiety Musculoskeletal: None - Past Surgical History Past Surgical History: Yes General: Gastric surgery /TYPING CHECKER: section - Present Medications Home Medications: Ambulatory Orders Medication Instructions Recorded Confirmed Venlafaxine HCl 75 - 150 mg PO BID 12/16/22 01/23/23 Norelgestromin/Ethin.estradiol 1 each TD Q7D 01/23/23 01/23/23 [Xulane 150-35 Mcg/Day Patch] Ondansetron Odt [Zofran] 4 mg TL Q6H PRN #20 tablet 01/23/23 Oxycodone HCl/Acetaminophen 1 - 2 each PO Q6H PRN #20 tablet 01/23/23 [Percocet 5-325 mg Tablet] MDD 6 tabs - Allergies Allergies/Adverse Reactions: Allergies Allergy/AdvReac Type Severity Reaction Status Date / Time bee venom protein (honey bee) AdvReac Rash Verified 01/23/23 12:44 - Social History Does the pt smoke?: No Smoking Status: Never smoker Does the pt drink ETOH?: No Does the pt have substance abuse?: No - Immunizations Immunizations are current?: Yes - POLST Patient has POLST: No PD ED PE NORMAL - Vitals Vital signs reviewed: Yes - General General: Alert and oriented X 3, No acute distress - HEENT HEENT: PERRL, Moist mucous membranes - Neck Neck: Supple, no meningeal sign - Cardiac Cardiac: RRR, Strong equal pulses - Respiratory Respiratory: Clear bilaterally - Abdomen Abdomen: Soft, Non distended, Other (Tender to palpation epigastric without peritoneal signs) - Back Back: No CVA TTP, No spinal TTP - Derm Derm: Warm and dry - Extremities Extremities: No edema - Neuro Neuro: Alert and oriented X 3 - Psych Psych: Normal mood, Normal affect Results - Vitals Vitals: Vital Signs - 24 hr 01/23/23 01/23/23 12:45 14:47 Temperature 36.2 C L Heart Rate 69 70 Respiratory 18 16 Rate Blood Pressure 132/80 H 142/92 H O2 Saturation 99 95 Oxygen O2 Source Room air - Labs Labs: Laboratory Tests 01/23/23 01/23/23 01/23/23 12:58 13:22 13:22 WBC 10.6 RBC 5.27 Hgb 14.1 Hct 42.9 MCV 81.4 MCH 26.8 L MCHC 32.9 RDW 14.7 Plt Count 301 MPV 9.7 Neut # (Auto) 8.1 H Lymph # (Auto) 1.6 Anderson # (Auto) 0.7 Eos # (Auto) 0.1 Baso # (Auto) 0.0 Absolute Nucleated RBC 0.00 Nucleated RBC % 0.0 Sodium 138 Potassium 4.0 Chloride 104 Carbon Dioxide 27 Anion Gap 7.0 BUN 14 Creatinine 0.7 Estimated GFR (MDRD) 100 Glucose 132 H Calcium 9.3 Total Bilirubin 2.1 H AST 88 H ALT 90 H Alkaline Phosphatase 189 H Total Protein 6.7 Albumin 3.8 Globulin 2.9 Albumin/Globulin Ratio 1.3 Lipase > 6000 H Urine Color ORANGE Urine Clarity HAZY Urine pH Ur Specific [place] Urine Protein Urine Glucose (UA) NEGATIVE Urine Ketones Urine Occult Blood NEGATIVE Urine Nitrite Urine Bilirubin MODERATE H Urine Urobilinogen Ur Leukocyte Esterase Urine RBC 0-5 Urine WBC 0-3 Ur Squamous Epith Cells MANY Squamous H Urine Bacteria Moderate H Ur Microscopic Review INDICATED Urine Culture Comments NOT INDICATED Urine HCG, Qual NEGATIVE PD Medical Decision Making - ED course Complexity details: reviewed results, re-evaluated patient, considered differential, d/w patient ED course: Pain well-controlled in the emergency department. Tolerating p.o. well. Patient request to go home at this time. She will follow-up with her surgeon as scheduled on February 12 for cholecystectomy. She will return for uncontrollable pain, vomiting, fevers or other new or worrisome symptoms. Her laboratory studies are consistent with her prior diagnosis of biliary sludge and pancreatitis. Patient is well-appearing, nontoxic. Given IV fluids and IV dilaudid Patient counseled regarding signs and symptoms for which I believe and urgent re-evaluation would be necessary. Patient with good understanding of and agreement to plan and is comfortable going home at this time This document was made in part using voice recognition software. While efforts are made to proofread this document, sound alike and grammatical errors may occur. Departure - Departure Disposition: 01 Home, Self Care Clinical Impression: Pancreatitis Qualifiers: Chronicity: acute Pancreatitis type: unspecified pancreatitis type Acute pancreatitis complication: unspecified Qualified Code(s): K85.90 - Acute pancreatitis without necrosis or infection, unspecified Condition: Good Instructions: ED Pancreatitis Follow-Up: Ministerio Porter MD [Provider Admit Priv/Credential] - Prescriptions: Oxycodone HCl/Acetaminophen [Percocet 5-325 mg Tablet] 1 - 2 each PO Q6H PRN #20 tablet MDD 6 tabs PRN Reason: pain Ondansetron Odt [Zofran] 4 mg TL Q6H PRN #20 tablet PRN Reason: Nausea / Vomiting Comments: Your prescriptions were sent to [facility] in [place]. Please use the medication as needed for pain and nausea. Please return if you worsen. Please follow-up with your surgeon for cholecystectomy. I would stick to a clear liquid diet as you have done previously during these attacks. I am prescribing a short course of narcotic pain medication for you. These are potentially dangerous and addictive medications that should be used carefully. These medications may constipate you. Take an usim-mlb-[id number] stool softener (docusate) twice daily with plenty of water while taking these medications. If you go 24 hours without a bowel movement, take [id number] miralax, per package instructions. Do not drink or drive while taking these medications. If you received narcotic or sedating medications while in the emergency department, do not drive for 24 hours. Store this medication in a safe, secure place and out of reach of children. It is a violation of federal law to give or sell this medication to another person or to use in a manner other than prescribed. The ED will not refill narcotic prescriptions, including prescriptions lost or stolen. To dispose of unwanted medications: 1. [facility] at [address] in [place] has a medication drop box. They accept prescription medications (in pill form) Sunday through Sunday 9:00 a.m. to 5:00 p.m. 2. [facility] [employer] accepts prescription medications (in pill form only) for disposal year round. Call for more information. 3. Contact the [facility] for the next [facility] sponsored prescription drug collection event. , [phone], or [phone]; Forms: PCP List
[2023-01-23 15:20] VITALS: BP 143/84; O2SAT 96
== END 2023-01-23 15:35 | disposition home or self-care (01) ==
LOC: ED 12:32
DX: K85.90 Acute pancreatitis without necrosis or infection, unspecified (principal)
CPT/HCPCS: 36415; 80053; 81001; 81025; 83690; 85025; 96374; 99283; J1170; 81003; 87086

== ENCOUNTER 2023-02-12 06:23 | Day surgery (SDC) | payer MEDICAID ==
[2023-02-12] MEDS ORDERED: ceFAZolin 2 GM VIAL ONE (06:28)
[2023-02-12] MEDS ORDERED: CELECOXIB 100 MG CAPSULE PO ONE (06:28)
[2023-02-12] MEDS ORDERED: ACETAMINOPHEN 500 MG TABLET PO ONE (06:28)
[2023-02-12] MEDS ORDERED: metroNIDAZOLE 500 MG/100 ML 500 MG/100 ML BAG ONE (06:28)
[2023-02-12] MEDS ORDERED: LACTATED RINGERS 1,000 ML IV ONE ×2 (06:41→09:56)
[2023-02-12 06:58] LABS: HCG UR QUAL NEGATIVE
[2023-02-12] MEDS ORDERED: DEXAMETHASONE 4 MG/ML VIAL ONE (07:18)
[2023-02-12] MEDS ORDERED: LIDOCAINE-PF 2% 10 ML AMP SUBQ ONE (07:18)
[2023-02-12] MEDS ORDERED: ONDANSETRON 4 MG/2 ML VIAL ONE ×2 (07:18→10:39)
[2023-02-12] MEDS ORDERED: PROPOFOL 200 MG/20 ML VIAL IVP ONE (07:18)
[2023-02-12] MEDS ORDERED: fentaNYL 100 MCG/2 ML VIAL ONE ×2 (07:18→08:40)
[2023-02-12] MEDS ORDERED: MIDAZOLAM 2 MG/2 ML VIAL ONE (07:18)
[2023-02-12] MEDS ORDERED: ROCURONIUM 50 MG/5 ML VIAL ONE ×2 (07:18→08:16)
[2023-02-12] MEDS ORDERED: KETOROLAC 30 MG/ML VIAL ONE (07:18)
[2023-02-12] MEDS ORDERED: LIDOCAINE 1%-EPI 1:100000 20 ML MDV ONE ×2 (07:25→08:41)
[2023-02-12] MEDS ORDERED: iohexoL-240 10 ML VIAL IVP ONE ×3 (07:25→09:21)
[2023-02-12] MEDS ORDERED: BUPIVACAINE 0.5% PF 10 ML VIAL ONE (07:25)
[2023-02-12] MEDS ORDERED: ceFAZolin 1 GM VIAL ONE (07:54)
[2023-02-12] MEDS ORDERED: LIDOCAINE 1%-EPI 1:100000 20 ML MDV SUBQ ONE ×2 (08:43)
[2023-02-12] MEDS ORDERED: BUPIVACAINE 0.5% PF 10 ML VIAL INFIL ONE (08:43)
[2023-02-12] MEDS ORDERED: GLUCAGON 1 MG/ML VIAL ONE (09:11)
[2023-02-12] MEDS ORDERED: SUGAMMADEX 200 MG/2 ML VIAL IVP ONE (09:37)
[2023-02-12] MEDS ORDERED: IBUPROFEN 600 MG TABLET PO PRN (09:53)
[2023-02-12] MEDS ORDERED: ACETAMINOPHEN 325 MG TABLET PO PRN (09:53)
[2023-02-12] MEDS ORDERED: HYDROmorphone 0.5 MG/0.5 ML SYRINGE IVP PRN (09:53)
[2023-02-12] MEDS ORDERED: ONDANSETRON 4 MG/2 ML VIAL IVP PRN ×2 (09:53→10:01)
[2023-02-12] MEDS ORDERED: oxyCODONE 5 MG TABLET PO PRN (09:53)
--- NOTE | 2023-02-12 09:59 | OPERATIVE REPORT ---
Operative Report - General Procedure Date: 02/12/23 Planned Procedure: laparoscopic cholecystectomy with cholangiogram, possible open Pre-Op Diagnosis: recurrent gallstone pancreatitis, symptomatic cholelithiasis Procedure Performed: laparoscopic cholecystectomy with cholangiogram Post Op Diagnosis: choledocholithiasis, cholelithiasis, recurrent gallstone pancreatitis - Procedure Note Primary Surgeon: Dr. Mirtha Porter Anesthesia Provider: Kayla Pennignton CRNA Anesthesia Technique: General ET tube, Local Pathology: gallbladder and contents Estimated Blood Loss (mL): 15 Indications: This is a very pleasant 27-year-old female with a history of laparoscopic sleeve gastrectomy. She has had at least 4 episodes of severe epigastric abdominal pain radiating to the back, requiring several visits to the emergency department where she has been diagnosed with pancreatitis. This is thought to be gallstone pancreatitis. She was seen and evaluated by me in clinic. We discussed the risks, benefits, and alternatives of laparoscopic cholecystectomy. Risks include but are not limited to bleeding, infection, damage to surrounding structures, and the need for further surgeries or procedures. We also discussed the possibility of needing an open procedure, which the patient may be at increased risk for due to her previous surgeries including sleeve gastrectomy and emergency section. The patient voiced understanding, her questions were answered, and she wished to proceed. A consent was signed by the patient prior to surgery. Findings: 1. Cholelithiasis 2. Choledocholithiasis, Unable to clear 3. Midline adhesions from previous surgery Complications: None - Other Other Information/Narrative: The patient was brought to the operative suite and placed in the supine position. General endotracheal anesthesia was induced. Preoperative antibiotics were given. ERAS protocol was followed. A preop surgical timeout was performed. Local anesthetic was injected into the skin and subcutaneous tissues just inferior to the umbilicus. An 11 blade scalpel was used to make a 5 mm transverse skin incision in this location. Next, a hemostat was used to spread the tissues down to the level of the fascia and a [place] clamp was used to grasp and elevate the umbilical stalk. A Varess needle was used to gain access to the peritoneal space. Low flow insufflation revealed low pressures and then high flow insufflation was undertaken to 15 mmHg. Next, the Varess needle was removed and a 5 mm laparoscopic port was inserted in this location. Through this port, a 5 mm 30 degree laparoscope was inserted. On inspection of the abdomen no injury was caused on entry. The patient was noted to have adhesions between the omentum and anterior abdominal wall in the upper midline. I was able to avoid these and adequately visualize the right upper quadrant. Next, the patient was placed in reverse Trendelenburg and rotated slightly to the left. Two 5 mm ports were inserted in the right upper quadrant, one in the anterior axillary line and the other in the midclavicular line. Also, a 12 mm port was inserted in the subxiphoid region. All ports were placed by first anesthetizing the skin and subcutaneous tissues with local anesthetic, then by making an appropriate length incision with an 11 blade scalpel, and finally by placing the port under direct laparoscopic vision. Once the ports were in place, a ratcheted, toothed grasper was used to elevate the fundus of the gallbladder toward the patient's right shoulder. Next, the peritoneum was incised starting at the hilum of the gallbladder and working toward the fundus along the gallbladder liver interface on the medial and lateral aspects of the gallbladder. Next, attention was returned to the hilum of the gallbladder. The alveolar tissues in this region were taken down with blunt and sharp dissection with electrocautery taking great care not to cauterize though any tissue I could not easily see through. Two ductal structures were isolated and skeletonized such that each ductal structure could be visualized with liver present on either side. The cystic plate was also developed. At this time, it was felt that a critical view of safety had been obtained. Next, a clip was placed distally, that is toward the gallbladder, on the cystic duct and just proximal to this a ductotomy was performed. A cholangiogram catheter was placed within the duct and it was flushed with saline. It was difficult to place a cholangiogram catheter, and several small stones were removed from the cystic duct during this process. Once placed, there was no leakage and the catheter flushed easily. Clips were also placed proximally and distally on the cystic artery. Full strength Isovue dye was then placed on the cholangiogram catheter and a cholangiogram was performed. The cholangiogram demonstrated normal proximal filling of the right and left hepatic system, and that the catheter was within the cystic duct. The distal common bile duct did not empty into the duodenum. Next, glucagon was given, and 3 minutes were allowed to elapse. I also milked the common bile duct and cystic duct gently with an atraumatic grasper back toward the ductotomy and 2 more small stones were removed. The cholangiogram catheter was again placed and flushed easily. Repeat cholangiogram still did not demonstrate any filling of the duodenum. Next the cholangiogram catheter was removed. Two clips and an Endoloop were placed proximally on the cystic duct. The cystic duct and cystic artery were divided using laparoscopic scissors between the clips. Next the gallbladder was dissected off of the liver bed. Once it was completely freed, the gallbladder was placed in an Endo Catch bag and removed th rough the epigastric port. The epigastric port was replaced and suction and irrigation were used to remove any fluid from the right upper quadrant. This was done until the fluid returned was clear. Next, a laparoscopic fascial closure device was used to place 2, interrupted 0 Vicryl sutures at the epigastric port. This reapproximated the fascia well. The remaining ports were removed under direct laparoscopic vision and the abdomen was deflated. Next, the skin edges were reapproximated with 4-0 Monocryl in an interrupted subcuticular fashion. A sterile dressing of skin glue was placed. The patient tolerated the procedure well. The patient was extubated in the operating room and transferred to the recovery room in stable condition. There were no complications. However, due to the choledocholithiasis that was unable to be cleared, the patient will require postoperative ERCP.
[2023-02-12] MEDS ORDERED: fentaNYL 100 MCG/2 ML VIAL IVP PRN (10:01)
[2023-02-12] MEDS ORDERED: NALOXONE 0.4 MG/ML VIAL IVP PRN (10:01)
[2023-02-12] MEDS ORDERED: ATROPINE ABBOJECT 1 MG/10 ML SYRINGE IVP PRN (10:01)
[2023-02-12] MEDS ORDERED: MORPHINE 2 MG/ML CARPUJECT IVP PRN (10:01)
[2023-02-12] MEDS ORDERED: ePHEDrine 50 MG/ML VIAL IVP PRN (10:01)
--- NOTE | 2023-02-12 10:04 | ANESTHESIA ---
Pre-Anesthesia VS, & Labs - Diagnosis chronic cholecystitis, cholelithiasis, hx of pancreatitis - Procedure lap garcía with cholangiogram Vital Signs: Temp Pulse Resp BP Pulse Ox O2 Flow Rate 36.0 C L 87 22 141/88 H 100 02/12/23 06:56 02/12/23 09:59 02/12/23 09:59 02/12/23 09:59 02/12/23 09:59 Height: 5 ft 6 in Weight (kg): 125 kg Body Mass Index: 44.4 BMI Classification: Morbidly Obese - NPO >8 hours - Is Patient ?: No Home Medications and Allergies Active Medications Acetaminophen (Acetaminophen 325 Mg Tablet) 650 mg PO Q6H PRN PRN Reason: Pain or Fever > 38C (100.4F) Hydromorphone HCl (Hydromorphone 0.5 Mg/0.5 Ml Syringe) 0.5 mg IVP Q30M PRN PRN Reason: Breakthrough Pain Ibuprofen (Ibuprofen 600 Mg Tablet) 600 mg PO Q6HR PRN PRN Reason: PAIN Ondansetron HCl (Ondansetron 4 Mg/2 Ml Vial) 4 mg IVP Q6HR PRN PRN Reason: Nausea / Vomiting Oxycodone HCl (Oxycodone 5 Mg Tablet) 5 mg PO Q4HR PRN PRN Reason: PAIN >8 Venlafaxine HCl 75 - 150 mg PO BID 12/16/22 Norelgestromin/Ethin.estradiol [Xulane 150-35 Mcg/Day Patch] 1 each TD Q7D 01/23/23 Allergies/Adverse Reactions: Allergies Allergy/AdvReac Type Severity Reaction Status Date / Time bee venom protein (honey bee) AdvReac Rash Verified 02/12/23 06:54 Anes History & Medical History - Anesthetic History Anesthesia Complications: reports: No previous complications Family history of Anesthesia Complications: Denies Family history of Malignant Hyperthermia: Denies - Medical History Cardiovascular: reports: None Pulmonary: reports: None Gastrointestinal: reports: GERD, Pancreatitis, Cholelithiasis Urinary: reports: None Neuro: reports: None Musculoskeletal: reports: None Endocrine/Autoimmune: reports: None Blood Disorders: reports: None Skin: reports: None Smoking Status: Never smoker Other Past Medical History: morbid obesity - Surgical History General: reports: Gastric surgery Gynecologic: reports: section Exam General: Alert, Oriented x3, Cooperative Dental: WNL Mouth Openin Fingerbreadth Neck Mobility: Normal Mallampati classification: II Thyromental Distance: 4-6 cm Respiratory: Lungs clear Cardiovascular: Regular rate (pt horase from recent cold, no current fever/cough) Plan Anesthesia Type: General Consent for Procedure(s) Verified and Reviewed: Yes Code Status: Attempt Resuscitation ASA classification: 3-Severe systemic disease Is this case an emergency?: No
[2023-02-12] MEDS ORDERED: HYDROmorphone 1 MG/ML CARPUJECT ONE (10:08)
[2023-02-12] MEDS: HYDROmorphone 0.5 MG/0.5 ML SYRINGE IVP PRN ×3 (10:10→10:38)
[2023-02-12 10:30] LABS: ALBUMIN 3.6 g/dL (3.2-5.5); ALBUMIN/GLOBULIN RATIO 1.4 (1.0-2.2); BILIRUBIN,TOTAL 0.4 mg/dL (0.2-1.0); CALCIUM 8.6 mg/dL (8.5-10.3); CREATININE 0.9 mg/dL (0.6-1.3); POTASSIUM 3.8 mmol/L (3.5-4.5); TOTAL PROTEIN 6.2 g/dL (6.4-8.9)
[2023-02-12] MEDS ORDERED: HYDROmorphone 0.5 MG/0.5 ML SYRINGE ONE (10:37)
[2023-02-12] MEDS ORDERED: LACTATED RINGERS 1,000 ML IV SCH (11:00)
--- NOTE | 2023-02-12 11:10 | PROVIDER PROGRESS NOTE ---
Progress Note Pain controlled. I spoke with Dr. Rodrigues at [facility] who is able to do an ERCP for this patient as an outpatient later this week, on Thrusday. He requests the patient remain on a low fat diet until her procedure. Will plan for discharge if able to tolerate clears.
[2023-02-12 12:56] VITALS: BP 125/71; O2SAT 97
--- NOTE | 2023-02-12 14:47 | ANESTHESIA POST OP EVALUATION ---
Anesthesia Post Eval - Post Anesthesia Eval Vitals: Last Vital Signs Temp 36 C L 02/12/23 10:50 Pulse 84 02/12/23 12:40 Resp 20 02/12/23 12:40 BP 125/71 02/12/23 12:40 Pulse Ox 97 02/12/23 12:40 O2 Flow Rate CV Function Including HR & BP: Stable Pain Control: Satisfactory Nausea & Vomiting: Negative Mental Status: Baseline Respiratory Status: Airway Patent Hydration Status: Satisfactory Anesthesia Complications: None
--- NOTE | 2023-02-12 15:15 | XRAY Report ---
PROCEDURE: OR Cholangiogram INDICATIONS: cholangiogram TECHNIQUE: Intraoperative imaging during cholangiogram. COMPARISON: None. FINDINGS: Intraoperative imaging during cholangiogram. Contrast is seen injected into the common bile duct exte nding into the cystic duct and biliary ducts without stricture or filling defect. IMPRESSION: Intraoperative imaging during cholangiogram. No biliary strictures or filling defects are identified. Reviewed by: Yoni Torres MD on 02/12/2023 3:14 PM PST Approved by: Yoni Torres MD on 02/12/2023 3:14 PM PST Station ID: [id number]
== END 2023-02-12 06:24 | disposition home or self-care (01) ==
LOC: SDS 06:23
PROVIDERS: ATTEND Surgery
PROC: 0FT44ZZ Resection of Gallbladder, Percutaneous Endoscopic Approach (ICD-10-PCS; principal; 2023-02-12 07:30)
DX: K80.64 Calculus of gallbladder and bile duct with chronic cholecystitis without obstruction (principal); K85.10 Biliary acute pancreatitis without necrosis or infection; K21.9 Gastro-esophageal reflux disease without esophagitis; E66.01 Morbid (severe) obesity due to excess calories; Z68.41 Body mass index [BMI] 40.0-44.9, adult
CPT/HCPCS: 36415; 80053; 81025; 83690; Q9966

== ENCOUNTER 2023-03-07 12:09 | Emergency (ER) | payer MEDICAID ==
[2023-03-07 12:40] LABS: BASOPHILS % (AUTO) 0.3 %; EOSINOPHILS # (AUTO) 0.4 10^3/uL (0.0-0.7); EOSINOPHILS % (AUTO) 3.9 %; HCT - HEMATOCRIT 40.1 % (37.0-47.0); HGB - HEMOGLOBIN 13.5 g/dL (12.0-16.0); LYMPHOCYTES # (AUTO) 2.9 10^3/uL (1.5-3.5); LYMPHOCYTES % (AUTO) 29.6 %; MEAN CORPUSCULAR HEMOGLOBIN 28.2 pg (27.0-31.0); MEAN CORPUSCULAR HGB CONC 33.7 g/dL (32.0-36.0); MEAN CORPUSCULAR VOLUME 83.7 fL (81.0-99.0); MEAN PLATELET VOLUME 9.3 fL (7.9-10.8); MONOCYTES # (AUTO) 0.7 10^3/uL (0.0-1.0); MONOCYTES % (AUTO) 6.6 %; NEUTROPHILS # (AUTO) 5.8 10^3/uL (1.5-6.6); NEUTROPHILS % (AUTO) 59.3 %; PLT - PLATELET COUNT 281 10^3/uL (130-450); RED BLOOD COUNT 4.79 10^6/uL (4.20-5.40); RED CELL DISTRIBUTION WIDTH 13.8 % (12.0-15.0); WHITE BLOOD COUNT 9.8 x10^3/uL (4.8-10.8)
[2023-03-07 13:07] LABS: ALBUMIN 3.7 g/dL (3.2-5.5); ALBUMIN/GLOBULIN RATIO 1.4 (1.0-2.2); BILIRUBIN,TOTAL 0.4 mg/dL (0.2-1.0); CREATININE 0.7 mg/dL (0.6-1.3); POTASSIUM 3.7 mmol/L (3.5-4.5); TOTAL PROTEIN 6.4 g/dL (6.4-8.9)
[2023-03-07 17:15] VITALS: O2SAT 100
[2023-03-07 17:42] LABS: BILIRUBIN,URINE NEGATIVE (NEGATIVE); GLUCOSE, URINE (UA) NEGATIVE (NEGATIVE); KETONES,URINE (UA) NEGATIVE (NEGATIVE); LEUKOCYTE ESTERASE, URINE NEGATIVE (NEGATIVE); NITRITE,URINE NEGATIVE (NEGATIVE); OCCULT BLOOD,URINE LARGE (NEGATIVE); PROTEIN,URINE NEGATIVE (NEGATIVE); UROBILINOGEN,URINE 0.2 (NORMAL) E.U./dL (NORMAL)
[2023-03-07 17:52] LABS: BACTERIA,URINE Few /HPF (None Seen); CLARITY,URINE CLEAR (CLEAR); SQUAMOUS EPITHELIAL CELL,UR MANY Squamous (<= Few); WBC,URINE 0-3 /HPF (0-5)
--- NOTE | 2023-03-07 20:04 | Ultrasound Report ---
PROCEDURE: OB 1st Trimester w/TV INDICATIONS: 5 wks preg vag bleed OUTSIDE/PRIOR DATING DATA: Last menstrual period (LMP): Unknown. LMP-based estimated date of delivery (MICHAEL): Not applicable. First dating scan (date and location): Not applicable. Estimated date of delivery (MICHAEL) from first dating scan: Not applicable. TECHNIQUE: Real-time scanning was performed of the fetus and maternal pelvic organs, with image documentation. Endovaginal scanning was also performed to better visualize the fetus and maternal ovaries. COMPARISON: None. FINDINGS: No intrauterine gestational sac present. Other: No perigestational fluid collection. Measurement variability in dating: +/- 4 weeks by LMP, +/- 7 days by mean sac diameter (use before 6 weeks gestation if crown-rump length not able to be measured), +/- 5 days by crown-rump length (6-12 weeks gestation). Maternal organs: Simple left ovarian follicle. Right ovarian corpus luteum and additional simple appe aring cyst. Moderate free fluid in pelvis. IMPRESSION: of unknown location, with no gestational sac or adnexal mass visualized. Differential inclu yehuda early gestational , miscarriage, or less likely ectopic . Consider trending bet a-hCG or repeat ultrasound as necessary. Moderate amount of free fluid in the pelvis, possibly from ruptured cyst, less likely ruptured ectopi c in the absence of malignancy and with the low beta hCG. Reviewed by: Rk Maya MD on 03/07/2023 8:02 PM PST Approved by: Rk Maya MD on 03/07/2023 8:02 PM PST Station ID: [id number]
--- NOTE | 2023-03-07 20:11 | ED Physician Documentation ---
History of Present Illness - Stated complaint Stated Complaint: ,CRAMPING - Chief complaint Chief Complaint: Abd Pain - History obtained from History obtained from: Patient - History of Present Illness Timing: Yesterday Pain level max: 2 Pain level now: 2 - Additonal information Additional information: Patient is a 19-year-old female, believes she is about 5 weeks , 3 para 1 who presents to the emergency department with vaginal bleeding. This started last night. Had bleeding like a normal menses last night spotting today. Mild pelvic cramping. Her previous miscarriage was at about 9 weeks EGA. She is not on any blood thinners or other medications at home. No trauma. No fevers. No chills. Review of Systems Constitutional: denies: Fever, Chills GI: denies: Vomiting, Diarrhea Skin: denies: Rash Musculoskeletal: denies: Neck pain, Back pain Neurologic: denies: Headache PD PAST MEDICAL HISTORY - Past Medical History Past Medical History: Yes Cardiovascular: None Respiratory: None Neuro: None Endocrine/Autoimmune: None GI: GERD, Pancreatitis, Cholelithiasis MEDICAL AUDITOR: None : None HEENT: None Psych: Depression, Anxiety Musculoskeletal: None Derm: None - Past Surgical History Past Surgical History: Yes General: Cholecystectomy, Gastric surgery /MEDICAL AUDITOR: section - Present Medications Home Medications: Ambulatory Orders Medication Instructions Recorded Confirmed Venlafaxine HCl 75 - 150 mg PO BID 12/16/22 02/12/23 Norelgestromin/Ethin.estradiol 1 each TD Q7D 01/23/23 02/12/23 [Xulane 150-35 Mcg/Day Patch] Ondansetron Odt [Zofran] 4 mg TL Q6H PRN #20 tablet 01/23/23 02/06/23 Oxycodone HCl/Acetaminophen 1 - 2 each PO Q6H PRN #20 tablet 01/23/23 02/06/23 [Percocet 5-325 mg Tablet] MDD 6 tabs oxyCODONE [Roxicodone] 5 mg PO Q4H PRN #15 tablet 02/12/23 polyethylene glycoL 3350(BULK) 17 gm PO DAILY #238 gm 02/12/23 [Miralax] - Allergies Allergies/Adverse Reactions: Allergies Allergy/AdvReac Type Severity Reaction Status Date / Time bee venom protein (honey bee) AdvReac Rash Verified 03/07/23 12:18 - Social History Does the pt smoke?: No Smoking Status: Never smoker Does the pt drink ETOH?: No Does the pt have substance abuse?: No - Immunizations Immunizations are current?: Yes - POLST Patient has POLST: No PD ED PE NORMAL - Vitals Vital signs reviewed: Yes - General General: Alert and oriented X 3, No acute distress - HEENT HEENT: Moist mucous membranes - Neck Neck: Supple, no meningeal sign - Cardiac Cardiac: RRR, Strong equal pulses - Respiratory Respiratory: No respiratory distress, Clear bilaterally - Abdomen Abdomen: Soft, Non tender, Non distended - Derm Derm: Warm and dry - Extremities Extremities: No edema, No calf tenderness / cord - Neuro Neuro: Alert and oriented X 3 - Psych Psych: Normal mood, Normal affect Results - Vitals Vitals: Vital Signs - 24 hr 03/07/23 03/07/23 03/07/23 12:20 15:45 17:00 Temperature 36.7 C Heart Rate 76 80 79 Respiratory 18 18 16 Rate Blood Pressure 114/80 123/87 H 134/78 H O2 Saturation 99 98 100 03/07/23 03/07/23 19:00 20:26 Temperature Heart Rate 76 68 Respiratory 16 16 Rate Blood Pressure 134/84 H 121/62 O2 Saturation 100 100 Oxygen O2 Source Room air - Labs Labs: Laboratory Tests 03/07/23 03/07/23 03/07/23 12:35 12:35 12:35 WBC 9.8 RBC 4.79 Hgb 13.5 Hct 40.1 MCV 83.7 MCH 28.2 MCHC 33.7 RDW 13.8 Plt Count 281 MPV 9.3 Neut # (Auto) 5.8 Lymph # (Auto) 2.9 [place] # (Auto) 0.7 Eos # (Auto) 0.4 Baso # (Auto) 0.0 Absolute Nucleated RBC 0.00 Nucleated RBC % 0.0 Sodium 139 Potassium 3.7 Chloride 108 Carbon Dioxide 27 Anion Gap 4.0 L BUN 11 Creatinine 0.7 Estimated GFR (MDRD) 100 Glucose 64 L Calcium 9.0 Total Bilirubin 0.4 AST 16 ALT 22 Alkaline Phosphatase 114 Total Protein 6.4 Albumin 3.7 Globulin 2.7 Albumin/Globulin Ratio 1.4 Lipase 30 Beta HCG, Quant 63.3 Urine Color Urine Clarity Urine pH Ur Specific [place] Urine Protein Urine Glucose (UA) Urine Ketones Urine Occult Blood Urine Nitrite Urine Bilirubin Urine Urobilinogen Ur Leukocyte Esterase Urine RBC Urine WBC Ur Squamous Epith Cells Urine Bacteria Ur Microscopic Review Urine Culture Comments 03/07/23 17:29 WBC RBC Hgb Hct MCV MCH MCHC RDW Plt Count MPV Neut # (Auto) Lymph # (Auto) [place] # (Auto) Eos # (Auto) Baso # (Auto) Absolute Nucleated RBC Nucleated RBC % Sodium Potassium Chloride Carbon Dioxide Anion Gap BUN Creatinine Estimated GFR (MDRD) Glucose Calcium Total Bilirubin AST ALT Alkaline Phosphatase Total Protein Albumin Globulin Albumin/Globulin Ratio Lipase Beta HCG, Quant Urine Color YELLOW Urine Clarity CLEAR Urine pH 6.0 Ur Specific [place] 1.025 Urine Protein NEGATIVE Urine Glucose (UA) NEGATIVE Urine Ketones NEGATIVE Urine Occult Blood LARGE H Urine Nitrite NEGATIVE Urine Bilirubin NEGATIVE Urine Urobilinogen 0.2 (NORMAL) Ur Leukocyte Esterase NEGATIVE Urine RBC 11-25 H Urine WBC 0-3 Ur Squamous Epith Cells MANY Squamous H Urine Bacteria Few Ur Microscopic Review INDICATED Urine Culture Comments NOT INDICATED - Rads (name of study) pelvic US Relevant Findings:: Final report received, See rad report PD Medical Decision Making - ED course Complexity details: reviewed results, re-evaluated patient, considered differential, d/w patient ED course: 27-year-old female with pelvic pain and vaginal bleeding affecting early . Her ultrasound shows a corpus luteum cyst on the right and a second simple cyst, there is some free fluid in the pelvis, shirring tender felt that this could be a small hemorrhagic cyst. There is no evidence of ectopic or intrauterine . Ectopic precautions given at bedside, likely miscarriage given that her hCG is only 63 and she believes she is approximately 5 weeks . We will have her follow-up closely with a repeat hCG in 2 to 3 days, if she cannot have that performed with her doctor, she will return here. Has no bleeding or pain currently. Abdomen is soft, nontender nondistended. Patient counseled regarding signs and symptoms for which I believe and urgent re-evaluation would be necessary. Patient with good understanding of and agreement to plan and is comfortable going home at this time This document was made in part using voice recognition software. While efforts are made to proofread this document, sound alike and grammatical errors may occur. Departure - Departure Disposition: 01 Home, Self Care Clinical Impression: Vaginal bleeding affecting early Condition: Good Instructions: ED Abdominal Pain Rule Out Ectopic, ED Miscarriage Poss Follow-Up: [facility] [Provider Group] Comments: Your hCG level is 63 today. There is no evidence of intrauterine or ectopic at this time. You do have 2 cysts on the right ovary. We need to have your hCG repeated in 2 to 3 days. If you are unable to do this with your doctor, please return here for repeat hCG. Please return immediately for increasing pain, bleeding or other new or worrisome symptoms. If your hCG is going up at the next draw, you will likely need a repeat ultrasound in 1 to 2 weeks. PROCEDURE: OB 1st Trimester w/TV INDICATIONS: 5 wks preg vag bleed OUTSIDE/PRIOR DATING DATA: Last menstrual period (LMP): Unknown. LMP-based estimated date of delivery (MICHAEL): Not applicable. First dating scan (date and location): Not applicable. Estimated date of delivery (MICHAEL) from first dating scan: Not applicable. TECHNIQUE: Real-time scanning was performed of the fetus and maternal pelvic organs, with image documentation. Endovaginal scanning was also performed to better visualize the fetus and maternal ovaries. COMPARISON: None. FINDINGS: No intrauterine gestational sac present. Other: No perigestational fluid collection. Measurement variability in dating: +/- 4 weeks by LMP, +/- 7 days by mean sac diameter (use before 6 weeks gestation if crown-rump length not able to be measured), +/- 5 days by crown-rump length (6- 12 weeks gestation). Maternal organs: Simple left ovarian follicle. Right ovarian corpus luteum and additional simple appearing cyst. Moderate free fluid in pelvis. IMPRESSION: of unknown location, with no gestational sac or adnexal mass visualized. Differential includes early gestational , miscarriage, or less likely ectopic . Consider trending beta-hCG or repeat ultrasound as necessary. Moderate amount of free fluid in the pelvis, possibly from ruptured cyst, less likely ruptured ectopic in the absence of malignancy and with the low beta hCG. Forms: PCP List Discharge Date/Time: 03/07/23 20:27
[2023-03-07 20:36] VITALS: BP 121/62
== END 2023-03-07 20:27 | disposition home or self-care (01) ==
LOC: ED 12:09
DX: O20.9 Hemorrhage in early pregnancy, unspecified (principal); Z3A.01 Less than 8 weeks gestation of pregnancy; O34.81 Maternal care for other abnormalities of pelvic organs, first trimester; N83.292 Other ovarian cyst, left side; N83.11 Corpus luteum cyst of right ovary; N83.291 Other ovarian cyst, right side
CPT/HCPCS: 36415; 80053; 81001; 81003; 83690; 84702; 85025; 87086; 99283; 99284

== ENCOUNTER 2023-03-09 11:50 | Outpatient (CLI) | payer MEDICAID | END 2023-03-09 11:51 | disposition home or self-care (01) | LOC: LAB 11:50 | PROVIDERS: ATTEND Obstetrics & Gynecology | DX: O20.0 Threatened abortion (principal) | CPT/HCPCS: 36415; 84702 ==

== ENCOUNTER 2023-05-06 19:32 | Emergency (ER) | payer MEDICAID ==
--- NOTE | 2023-05-06 20:16 | ED Physician Documentation ---
PD HPI FEMALE - Stated complaint Stated Complaint: PREG/BLEEDING - Chief complaint Chief Complaint: Abd Pain - History obtained from History obtained from: Patient - Additional information Additional information: HPI from patient. Patient complains of vaginal bleeding and suprapubic cramping; these symptoms/signs started at approximately 9 AM this morning. She says the cramping pain is mild, "like a menstrual cramp" (per patient). Patient says she is approximate 4 to 5 weeks . Patient also states that she had a miscarriage last month. She says this is her fourth , 2 previous miscarriages and also has 1 child. 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 : None HEENT: None Psych: Depression, Anxiety, Post traumatic stress disorder Musculoskeletal: None Derm: None - Past Surgical History Past Surgical History: Yes General: Cholecystectomy, Gastric surgery /SILVER WRAPPER: section - Present Medications Home Medications: Ambulatory Orders Medication Instructions Recorded Confirmed Venlafaxine HCl 75 - 150 mg PO BID 12/16/22 05/06/23 Norelgestromin/Ethin.estradiol 1 each TD Q7D 01/23/23 05/06/23 [Xulane 150-35 Mcg/Day Patch] - Allergies Allergies/Adverse Reactions: Allergies Allergy/AdvReac Type Severity Reaction Status Date / Time bee venom protein (honey bee) AdvReac Rash Verified 05/06/23 20:55 - Social History Does the pt smoke?: No Smoking Status: Never smoker Does the pt drink ETOH?: No Does the pt have substance abuse?: No - Immunizations Immunizations are current?: Yes - POLST Patient has POLST: No PD ED PE NORMAL - Vitals Vital signs reviewed: Yes - General General: Alert and oriented X 3, No acute distress, Well developed/nourished - Cardiac Cardiac: RRR, No murmur - Respiratory Respiratory: No respiratory distress, Clear bilaterally - Abdomen Abdomen: Soft, Non tender, Non distended - Back Back: No CVA TTP Results - Vitals Vitals: Oxygen O2 Source Room air - Labs Labs: Laboratory Tests 05/06/23 05/06/23 05/06/23 20:09 20:37 20:37 WBC 10.9 H RBC 4.94 Hgb 13.0 Hct 42.2 MCV 85.4 MCH 26.3 L MCHC 30.8 L RDW 12.9 Plt Count 270 MPV 9.4 Neut # (Auto) 6.2 Lymph # (Auto) 3.7 H [place] # (Auto) 0.7 Eos # (Auto) 0.3 Baso # (Auto) 0.0 Absolute Nucleated RBC 0.00 Nucleated RBC % 0.0 Sodium 139 Potassium 3.9 Chloride 106 Carbon Dioxide 29 Anion Gap 4.0 L BUN 13 Creatinine 0.7 Estimated GFR (MDRD) 100 Glucose 76 Calcium 8.7 Total Bilirubin 0.2 AST 19 ALT 28 Alkaline Phosphatase 99 Total Protein 5.9 L Albumin 3.5 Globulin 2.4 Albumin/Globulin Ratio 1.5 Lipase 30 Beta HCG, Quant 13.7 Urine Color YELLOW Urine Clarity CLOUDY Urine pH 6.0 Ur Specific [employer] 1.025 Urine Protein NEGATIVE Urine Glucose (UA) NEGATIVE Urine Ketones NEGATIVE Urine Occult Blood LARGE H Urine Nitrite NEGATIVE Urine Bilirubin NEGATIVE Urine Urobilinogen 0.2 (NORMAL) Ur Leukocyte Esterase NEGATIVE Urine RBC 11-25 H Urine WBC 0-3 Ur Squamous Epith Cells FEW Squamous Urine Bacteria Rare Ur Microscopic Review INDICATED Urine Culture Comments NOT INDICATED Blood Type 05/06/23 20:37 WBC RBC Hgb Hct MCV MCH MCHC RDW Plt Count MPV Neut # (Auto) Lymph # (Auto) [place] # (Auto) Eos # (Auto) Baso # (Auto) Absolute Nucleated RBC Nucleated RBC % Sodium Potassium Chloride Carbon Dioxide Anion Gap BUN Creatinine Estimated GFR (MDRD) Glucose Calcium Total Bilirubin AST ALT Alkaline Phosphatase Total Protein Albumin Globulin Albumin/Globulin Ratio Lipase Beta HCG, Quant Urine Color Urine Clarity Urine pH Ur Specific [employer] Urine Protein Urine Glucose (UA) Urine Ketones Urine Occult Blood Urine Nitrite Urine Bilirubin Urine Urobilinogen Ur Leukocyte Esterase Urine RBC Urine WBC Ur Squamous Epith Cells Urine Bacteria Ur Microscopic Review Urine Culture Comments Blood Type O POSITIVE - Rads (name of study) 1st trimester OB US Relevant Findings:: Prelim report reviewed, See rad report PD Medical Decision Making - ED course Complexity details: reviewed results, re-evaluated patient, considered differential, d/w patient ED course: Unremarkable CBC (minimal leukocytosis wbc 10.9). UA unremarkable except 11-25 rbc/hpf. Serums quantitative HCG 13.7, representing minimal elevation above negative range. Patient was evaluated in this ED in February (that ED MD note indicates patient was approximately 9 weeks out from a miscarriage), and on that visit (February) the HCG was 63.3. Outpatient early March HCG 19.8. Tonight's pelvic US is unremarkable; no abnormalities and no evidence of nor recent miscarriage. Patient's HCG and US are obviously not c/w 4-5 weeks . Possible explanations for this scenario include very early , remnants (specifically referring to mildly elevated serum HCG) of previous miscarriage. Results d/w patient. I d/w Dr. Viveros (premium cancellation clerk senior branch manager), no further emergent testing indicated at this time and patient can f/u outpatient. He recommends patient take a home- test in the next few days , as an ongoing positive result would be more concerning for need for follow-up than if the test turns negative (but still should seek f/u regardless of result). I relayed this information to the patient and she expresses understanding. Departure - Departure Disposition: Home, Self Care Clinical Impression: Vaginal bleeding Condition: Good Instructions: ED Bleed Irregular Vaginal Follow-Up: Eric iVveros MD [Provider Admit Priv/Credential] - Comments: There were no concerning findings on tonight's blood tests nor on the urinalysis. The pelvic/vaginal ultrasound does not show any abnormalities, specifically does not show any evidence of nor recent miscarriage. As we discussed, your " level" blood test (hCG) was just slightly above negative range. In other words, your hCG level is not in a range compatible with someone who is NOT . However, it is so minimally elevated, possible explanations include very early or result of recent miscarriage. The best way to differentiate between these 2 possibilities (hormone level going up versus declining) is to have the test repeated in the next several days. There will be different approaches depending on which direction it is going. I spoke with the on-call SALES SUPPORT REPRESENTATIVE (Dr. Viveros); he agrees that you should seek follow-up with your SALES SUPPORT REPRESENTATIVE within the next several days. In the meantime, he says that it would be reasonable for you to take a home test in another 2 or 3 days. If that test is negative, it would likely mean that the hCG level has declined to undetectable levels. However, no matter the result, you should still follow-up with your SALES SUPPORT REPRESENTATIVE within the coming week. Forms: PCP List Discharge Date/Time: 05/06/23 23:25
[2023-05-06 20:24] LABS: BILIRUBIN,URINE NEGATIVE (NEGATIVE); GLUCOSE, URINE (UA) NEGATIVE (NEGATIVE); KETONES,URINE (UA) NEGATIVE (NEGATIVE); LEUKOCYTE ESTERASE, URINE NEGATIVE (NEGATIVE); NITRITE,URINE NEGATIVE (NEGATIVE); OCCULT BLOOD,URINE LARGE (NEGATIVE); PROTEIN,URINE NEGATIVE (NEGATIVE); UROBILINOGEN,URINE 0.2 (NORMAL) E.U./dL (NORMAL)
[2023-05-06 20:25] LABS: CLARITY,URINE CLOUDY (CLEAR)
[2023-05-06 20:42] LABS: BACTERIA,URINE Rare /HPF (None Seen); SQUAMOUS EPITHELIAL CELL,UR FEW Squamous (<= Few); WBC,URINE 0-3 /HPF (0-5)
[2023-05-06 20:43] LABS: BASOPHILS % (AUTO) 0.3 %; EOSINOPHILS # (AUTO) 0.3 10^3/uL (0.0-0.7); EOSINOPHILS % (AUTO) 2.6 %; HCT - HEMATOCRIT 42.2 % (37.0-47.0); LYMPHOCYTES # (AUTO) 3.7 10^3/uL (1.5-3.5); LYMPHOCYTES % (AUTO) 33.8 %; MEAN CORPUSCULAR HEMOGLOBIN 26.3 pg (27.0-31.0); MEAN CORPUSCULAR HGB CONC 30.8 g/dL (32.0-36.0); MEAN CORPUSCULAR VOLUME 85.4 fL (81.0-99.0); MEAN PLATELET VOLUME 9.4 fL (7.9-10.8); MONOCYTES # (AUTO) 0.7 10^3/uL (0.0-1.0); MONOCYTES % (AUTO) 6.2 %; NEUTROPHILS # (AUTO) 6.2 10^3/uL (1.5-6.6); NEUTROPHILS % (AUTO) 56.7 %; PLT - PLATELET COUNT 270 10^3/uL (130-450); RED BLOOD COUNT 4.94 10^6/uL (4.20-5.40); RED CELL DISTRIBUTION WIDTH 12.9 % (12.0-15.0); WHITE BLOOD COUNT 10.9 x10^3/uL (4.8-10.8)
[2023-05-06 21:05] LABS: ALBUMIN 3.5 g/dL (3.2-5.5); ALBUMIN/GLOBULIN RATIO 1.5 (1.0-2.2); BILIRUBIN,TOTAL 0.2 mg/dL (0.2-1.0); CALCIUM 8.7 mg/dL (8.5-10.3); CREATININE 0.7 mg/dL (0.6-1.3); POTASSIUM 3.9 mmol/L (3.5-4.5); TOTAL PROTEIN 5.9 g/dL (6.4-8.9)
--- NOTE | 2023-05-06 22:00 | Ultrasound Report ---
PROCEDURE: OB 1st Trimester w/TV INDICATIONS: , vaginal bleeding, beta-hCG of 13.7 OUTSIDE/PRIOR DATING DATA: Last menstrual period (LMP): 03/19/2023. LMP-based estimated date of delivery (MICHAEL): 12/24/2023. First dating scan (date and location): 05/06/2023. TECHNIQUE: Real-time scanning was performed of the fetus and maternal pelvic organs, with image documentation. Endovaginal scanning was also performed to better visualize the fetus and maternal ovaries. COMPARISON: OB ultrasound 03/07/2023. FINDINGS: No intrauterine gestational sac present. Other: No perigestational fluid collection. Measurement variability in dating: +/- 4 weeks by LMP, +/- 7 days by mean sac diameter (use before 6 weeks gestation if crown-rump length not able to be measured), +/- 5 days by crown-rump length (6-12 weeks gestation). Maternal organs: Left ovarian dominant follicle. IMPRESSION: No gestational sac or adnexal mass visualized. Differential includes early gestational , mis carriage or less likely ectopic . Consider changing beta hCG or repeat ultrasound as necessa ry. Reviewed by: Angelic Solis MD, PhD on 05/06/2023 9:59 PM PDT Approved by: Angelic Solis MD, PhD on 05/06/2023 9:59 PM PDT Station ID: [id number]
[2023-05-06 23:26] VITALS: BP 127/84; O2SAT 100
== END 2023-05-06 23:25 | disposition home or self-care (01) ==
LOC: ED 19:32
DX: O20.9 Hemorrhage in early pregnancy, unspecified (principal); Z3A.01 Less than 8 weeks gestation of pregnancy
CPT/HCPCS: 36415; 80053; 81001; 81003; 83690; 84702; 85025; 86900; 86901; 87086; 99283; 99284

== ENCOUNTER 2023-07-29 14:51 | Emergency (ER) | payer MEDICAID ==
[2023-07-29 15:03] VITALS: O2SAT 96
[2023-07-29 16:02] LABS: B. PARAPERTUSSIS- RESP PCR PAN NOT DETECTED; B. PERTUSSIS- RESP PCR PANEL NOT DETECTED; C. PNEUMONIAE- RESP PCR PANEL NOT DETECTED; CORONAVIRUS 229E-RESP PCR NOT DETECTED; CORONAVIRUS HKU1-RESP PCR NOT DETECTED; CORONAVIRUS NL63-RESP PCR NOT DETECTED; CORONAVIRUS OC43-RESP PCR NOT DETECTED; HUMAN METAPNEUMOVIRUS NOT DETECTED; INFLUENZA A- RESP PCR PANEL NOT DETECTED; INFLUENZA B - RESP PCR PANEL NOT DETECTED; M. PNEUMONIAE- RESP PCR PANEL NOT DETECTED; PARAINFLUENZA VIRUS 1 NOT DETECTED; PARAINFLUENZA VIRUS 2 NOT DETECTED; PARAINFLUENZA VIRUS 3 NOT DETECTED; PARAINFLUENZA VIRUS 4 NOT DETECTED; RHINOVIRUS/ENTEROVIRUS NOT DETECTED; RSV- RESP PCR PANEL NOT DETECTED; SARS-CoV-2 -RESP PCR PANEL NOT DETECTED
--- NOTE | 2023-07-29 16:38 | ED Physician Documentation ---
PD HPI URI - Stated complaint Stated Complaint: COUGH,WATKINS,FACIAL PX - Chief complaint Chief Complaint: Resp - History obtained from History obtained from: Patient - History of Present Illness Timing - onset: How many weeks ago (2) Timing duration: Weeks (2) Pain level max: 0 Pain level now: 0 Associated symptoms: Nasal congestion, Rhinorrhea, Productive cough. No: Fever, Chills, Sore throat, Chest pain Improves by: Rest Worsened by: Activity Recently seen: Not recently seen - Additional information Additional information: 27-year-old female with 2 weeks of rhinorrhea, cough and congestion. She states she is approximately 5 weeks . No hypoxia or respiratory distress. She feels like it is hard to take a full deep breath. She is not having any pelvic pain or vaginal bleeding. 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 : None HEENT: None Psych: Depression, Anxiety, Post traumatic stress disorder Musculoskeletal: None Derm: None - Past Surgical History Past Surgical History: Yes General: Cholecystectomy, Gastric surgery /MICROCHIP SPECIALIST: section - Present Medications Home Medications: Ambulatory Orders Medication Instructions Recorded Confirmed Venlafaxine HCl 75 - 150 mg PO BID 12/16/22 07/29/23 Albuterol Sulf [Ventolin Hfa 1 - 2 puffs INH Q4HR PRN #1 each 07/29/23 Inhaler] Cetirizine [ZyrTEC] 10 mg PO DAILY PRN #30 tablet 07/29/23 Guaifenesin/Dextromethorphan 1 tab PO BID PRN #30 ea 07/29/23 [Guaifenesin-Dm ER 1,200-60 mg] - Allergies Allergies/Adverse Reactions: Allergies Allergy/AdvReac Type Severity Reaction Status Date / Time bee venom protein (honey bee) AdvReac Rash Verified 07/29/23 14:58 - Social History Does the pt smoke?: No Smoking Status: Never smoker Does the pt drink ETOH?: No Does the pt have substance abuse?: No - Immunizations Immunizations are current?: Yes - POLST Patient has POLST: No PD ED PE NORMAL - Vitals Vital signs reviewed: Yes - General General: Alert and oriented X 3, No acute distress - HEENT HEENT: Ears normal, Moist mucous membranes, Pharynx benign - Neck Neck: Supple, no meningeal sign - Cardiac Cardiac: RRR - Respiratory Respiratory: No respiratory distress, Other (Mildly diminished breath sounds bilaterally. No wheezing.) - Abdomen Abdomen: Soft, Non tender, Non distended - Derm Derm: Warm and dry - Extremities Extremities: No edema, No calf tenderness / cord - Neuro Neuro: Alert and oriented X 3 Results - Vitals Vitals: Oxygen O2 Source Room air - Labs Labs: Laboratory Tests 07/29/23 15:00 Nasal Adenovirus (PCR) NOT DETECTED Nasal B. parapertussis DNA (PCR) NOT DETECTED Nasal Coronavir 229E PCR NOT DETECTED Nasal Coronavir HKU1 PCR NOT DETECTED Nasal Coronavir NL63 PCR NOT DETECTED Nasal Coronavir OC43 PCR NOT DETECTED Nasal Enterovir/Rhinovir PCR NOT DETECTED Nasal Influenza B PCR NOT DETECTED Nasal Influenza A PCR NOT DETECTED Nasal Parainfluen 1 PCR NOT DETECTED Nasal Parainfluen 2 PCR NOT DETECTED Nasal Parainfluen 3 PCR NOT DETECTED Nasal Parainfluen 4 PCR NOT DETECTED Nasal RSV (PCR) NOT DETECTED Nasal B.pertussis DNA PCR NOT DETECTED Nasal C.pneumoniae (PCR) NOT DETECTED Kris Human Metapneumo PCR NOT DETECTED Nasal M.pneumoniae (PCR) NOT DETECTED Nasal SARS-CoV-2 (PCR) NOT DETECTED PD Medical Decision Making - ED course Complexity details: reviewed results, re-evaluated patient, considered differential, d/w patient ED course: Patient is well-appearing, nontoxic. Afebrile. Tolerating p.o. without difficulty. She was given albuterol here and feels better. Her respiratory PCR is negative. No evidence of pneumonia clinically. No indication for antibiotics. Will place her on cough medication and decongestants for home. Will have her follow-up with her OB for further care. We will have her recheck her blood pressure with her OB as well. No hypoxia. No respiratory distress. Patient counseled regarding signs and symptoms for which I believe and urgent re-evaluation would be necessary. Patient with good understanding of and agreement to plan and is comfortable going home at this time This document was made in part using voice recognition software. While efforts are made to proofread this document, sound alike and grammatical errors may occur. Departure - Departure Disposition: 01 Home, Self Care Clinical Impression: Viral URI with cough Condition: Good Instructions: ED Viral Syndrome Follow-Up: Isael Rodriguez ARNP [Primary Care Provider] - Prescriptions: Albuterol Sulf [Ventolin Hfa Inhaler] 1 - 2 puffs INH Q4HR PRN #1 each PRN Reason: Shortness Of Air/Wheezing Guaifenesin/Dextromethorphan [Guaifenesin-Dm ER 1,200-60 mg] 1 tab PO BID PRN #30 ea PRN Reason: cough Cetirizine [ZyrTEC] 10 mg PO DAILY PRN #30 tablet PRN Reason: nasal congestion Comments: As we discussed you are respiratory swab is negative. We will place you on cough medication and antihistamines for home. There is no indication for antibiotics at this time. Please follow-up with your OB for further care. Return if you worsen Your prescriptions were sent to [facility]. Forms: PCP List Discharge Date/Time: 07/29/23 17:27
[2023-07-29] MEDS: ALBUTEROL NEB 2.5 MG/3 ML INH STA (17:00)
[2023-07-29 17:29] VITALS: BP 148/82
== END 2023-07-29 17:27 | disposition home or self-care (01) ==
LOC: ED 14:51
DX: O99.511 Diseases of the respiratory system complicating pregnancy, first trimester (principal); J06.9 Acute upper respiratory infection, unspecified; B97.89 Other viral agents as the cause of diseases classified elsewhere; Z3A.01 Less than 8 weeks gestation of pregnancy; Z20.818 Contact with and (suspected) exposure to other bacterial communicable diseases; Z20.822 Contact with and (suspected) exposure to COVID-19; Z20.828 Contact with and (suspected) exposure to other viral communicable diseases
CPT/HCPCS: 87633; 94640; 99283

== ENCOUNTER 2023-07-30 14:18 | Outpatient (CLI) | payer MEDICAID | END 2023-07-30 14:19 | disposition home or self-care (01) | LOC: LAB 14:18 | PROVIDERS: ATTEND Obstetrics & Gynecology | DX: Z32.01 Encounter for pregnancy test, result positive (principal) | CPT/HCPCS: 36415; 84702 ==

== ENCOUNTER 2023-08-06 15:41 | Outpatient (CLI) | payer MEDICAID | END 2023-08-06 15:42 | disposition home or self-care (01) | LOC: LAB 15:41 | PROVIDERS: ATTEND Obstetrics & Gynecology | DX: Z32.01 Encounter for pregnancy test, result positive (principal) | CPT/HCPCS: 36415; 84702 ==

== ENCOUNTER 2023-08-14 10:14 | Outpatient (CLI) | payer MEDICAID | END 2023-08-14 10:15 | disposition home or self-care (01) | LOC: LAB 10:14 | PROVIDERS: ATTEND Obstetrics & Gynecology | DX: Z33.1 Pregnant state, incidental (principal) | CPT/HCPCS: 36415; 84702 ==